=== PATIENT | female | born 1945 | race Caucasian/White ===

== ENCOUNTER 2018-11-13 18:32 | Inpatient (IN) | payer MEDICARE, BC ==
[~2018-11-13] VITALS: Ht 165.1 cm; Wt 82.1 kg
--- NOTE | 2018-11-13 20:24 | NUR ---
Admission Note with Justification for Admission to [facility] Patient admitted to [facility] for protective oversight for emergency stabilization of acute psychiatric crisis. Pt admitted from: [facility] ER Mode of arrival: Secure Transport Accompanied By: Family, husbans and daughter Precipitating behaviors that initiated intake and admission: Wandering away from home, insomnia, hallucinations, paranoia Description of failure of out patient attempts at stabilization in previous setting list behavior and medication trials:Seroquel and seen by psychiatrist and the to ER Behaviors and assessment findings upon admission: Alert oriented, slow response, VSS Plan: Admit for protective oversight for adjustment and stabilization of medications, behaviors and mood. Intense treatment regimen including groups, medication adjustments, therapy, consistent regimen for ADL's, self care, and sleep hygiene. Daily monitoring by Inpatient staff, Psychiatry, and Medical Physician.
[2018-11-13 20:42] VITALS: BP 168/84
[2018-11-13] MEDS ORDERED: MAGNESIUM HYDROXIDE 2,400 MG/30 ML ORAL.SUSP. PO PRN (20:45)
[2018-11-13] MEDS ORDERED: METHYL SALICYLATE/MENTHOL TOPICAL OINTMENT 29GM TUBE. TP PRN (20:45)
[2018-11-13] MEDS ORDERED: MAG HYDROX/AL HYDROX/SIMETH 30 ML ORAL.SUSP PO PRN (20:45)
[2018-11-13] MEDS ORDERED: NICO2GUM5 BC (21:07)
[2018-11-13] MEDS ORDERED: DIPH25CA PO (21:07)
[2018-11-13] MEDS ORDERED: ZOLP5TAB PO (21:07)
[2018-11-13] MEDS ORDERED: QUET200T4 PO (21:07)
[2018-11-13] MEDS ORDERED: CEFP200T PO (21:07)
[2018-11-13] MEDS ORDERED: MULT-658 PO (21:07)
[2018-11-13] MEDS ORDERED: QUET100T4 PO (21:07)
[2018-11-13] MEDS ORDERED: ZOLPIDEM 5 MG TABLET. PO PRN (21:15)
[2018-11-13] MEDS ORDERED: NICOTINE POLACRILEX GUM 2 MG GUM. BC PRN (22:00)
[2018-11-13] MEDS: QUEtiapine 100 MG TABLET. PO SCH (22:17)
--- NOTE | 2018-11-13 22:30 | NUR ---
Pt resting in bed po med taken with some prompting. Pt tries to answer questions but has some difficulty finding the right words. She did say she hears voices and mentioned screaming but did not elaborate. Pt is ambulatory unaided, toilets self. and has shown no aggression or exit seeking tendencies. Approx 1 hr after seroquel given pt fell to sleep and appears to be resting well.
[2018-11-14 06:08] VITALS: BP 124/79
[2018-11-14 07:34] LABS: BASO % 1 % (0-3); EOS # 0.1 x10^3/uL (0.0-0.7); EOS % 2 % (0-3); HEMATOCRIT 47.3 % (36.0-47.0); LYMPH # 1.1 x10^3/uL (1.0-4.8); LYMPH % 22 % (24-48); MEAN CORPUSCULAR HEMOGLOBIN 31 pg (25-35); MEAN CORPUSCULAR HGB CONC 34 g/dL (31-37); MEAN CORPUSCULAR VOLUME 92 fL (79-100); MONO # 0.6 x10^3/uL (0.0-1.1); MONO % 11 % (0-9); NEUT # 3.3 x10^3uL (1.8-7.7); NEUT % 64 % (31-73); PLATELET COUNT 252 x10^3/uL (140-400); RED BLOOD COUNT 5.16 x10^6/uL (3.50-5.40); RED CELL DISTRIBUTION WIDTH 13.1 % (11.5-14.5); WHITE BLOOD COUNT 5.1 x10^3/uL (4.0-11.0)
[2018-11-14 07:35] LABS: ALBUMIN 3.4 g/dL (3.4-5.0); ALBUMIN/GLOBULIN RATIO 1.1 (1.0-1.7); CALCIUM 11.1 mg/dL (8.5-10.1); CREATININE 0.8 mg/dL (0.6-1.0); GFR 70.7; MAGNESIUM 2.1 mg/dL (1.8-2.4); POTASSIUM 3.8 mmol/L (3.5-5.1); TOTAL BILIRUBIN 0.5 mg/dL (0.2-1.0); TOTAL PROTEIN 6.6 g/dL (6.4-8.2)
[2018-11-14] MEDS: MULTIVITAMIN with MINERAL TABLET. PO SCH (07:51)
[2018-11-14] MEDS: QUEtiapine 100 MG TABLET. PO SCH ×2 (07:51→20:02)
[2018-11-14] MEDS: CEFDINIR 300 MG CAPSULE PO SCH ×2 (07:51→20:02)
[2018-11-14 13:50] LABS: THYROID STIM HORMONE (TSH) 2.235 uIU/mL (0.358-3.740)
[2018-11-14 16:04] VITALS: BP 148/82
--- NOTE | 2018-11-14 18:29 | NUR ---
Pt calm, compliant with meds and assessments. Pt oriented to self and situation. Gets confused on time and place. No behaviors noted. Pt interactive and pleasant.
[2018-11-14 19:11] LABS: THYROXINE 5.7 ug/dL (4.5-12.0)
--- NOTE | 2018-11-14 20:20 | NUR ---
Pt out on patio, was seen pulling weeds from flower beds. When talking to nurse it is apparent that pts mental status is greatly improved since yesterday. Speech is fluent and pt asking appropriate questions about why she is here and what she needs to do to be discharged. Explained to pt behaviors and family concerns that led to admission. Told her that med compliance and cooperation would speed her discharge. Pt said she had been reducing her med doses for some time which led her to having problems. She denies hearing voices at this time and seems at ease.
--- NOTE | 2018-11-15 00:34 | CONS ---
DATE OF CONSULTATION: 11/14/2018 REASON FOR CONSULTATION: Medical management. HISTORY OF PRESENT ILLNESS: The patient is a 73-year-old female patient who was admitted on account of wandering away from home and neighbors have brought her back, thinks strangers are in her home. She has auditory hallucination, stands in one place for hours, also increasing insomnia and confusion, all this is in a background of schizophrenia. She apparently has decided to stop taking her medication on her own and her symptoms have worsened again. PAST MEDICAL HISTORY: Significant for hyperparathyroidism, hypercalcemia, melanoma and UTI. PAST PSYCHIATRIC HISTORY: Significant for schizophrenia and auditory hallucinations. FAMILY HISTORY: Unremarkable. SOCIAL HISTORY: She lives with her . She apparently does not smoke, drink alcohol or use any recreational drugs. ALLERGIES: SHE IS ALLERGIC TO HALOPERIDOL. MEDICATIONS: She is currently on diphenhydramine 25 mg p.o. at bedtime p.r.n., cefpodoxime proxetil 200 mg twice a day, nicotine for Nicorette 2 mg every 2 hours, quetiapine fumarate 100 mg at bedtime, Ambien 5 mg at bedtime, and multivitamin 1 tablet once a day. PHYSICAL EXAMINATION: GENERAL: When I examined her this afternoon, she was sitting comfortably in her chair, in no apparent distress. There is no pallor, jaundice or cyanosis. No lymphadenopathy, no thyromegaly. No jugular venous distension. No limb edema. VITAL SIGNS: Her heart rate was 78, blood pressure was 124/79, temperature was 98, respiratory rate was 18 and oxygen saturation was 96%. HEAD, EYES, EARS, NOSE AND THROAT: Normocephalic, atraumatic. NECK: Supple. HEART: Showed normal first and second sounds. No gallop, rub or murmur. CHEST: Clear to auscultation. No crepitation or rhonchi. ABDOMEN: Distended, soft, nontender. NEUROLOGIC: She is confused, but without any obvious lateralizing sign. All her cranial nerves intact. EXTREMITIES: She moves extremities without difficulty. She ambulates without assistance or assistive devices. LABORATORY DATA: Showed a white cell count of 5100, hemoglobin 16, hematocrit 47, MCV 92, and platelet count 252,000 with normal manual differential. Her chemistry showed a serum sodium 144, potassium 3.8, chloride 107, bicarbonate 31, anion gap of 6, BUN 13, creatinine 0.8, estimated GFR was 70 mL per minute. Her glucose was 87, calcium was high at 11.2, magnesium was 2.1. Total bilirubin, AST, ALT, alkaline phosphatase were normal. Total protein was 6.6, albumin 3.4. Her serum iron, TIBC and iron saturation are all low consistent with anemia of chronic disease. Her serum triglycerides 126, total cholesterol 178, LDL was 113, VLDL was 25, HDL was 40, ratio was 4 and TSH was 2.235. IMPRESSION: In summary, this is a 73-year-old female patient with a past medical history of schizophrenia, who apparently was evaluated in the Emergency Room of [facility]. As she was wandering away from home, neighbors have brought her back. She thinks strangers are in her home. She has auditory hallucinations. She stands in one place for hours. Her confusion has increased as well as insomnia. She is here for inpatient psychiatric stabilization. Medically, the only outstanding abnormality is she has hypercalcemia with a serum calcium of 11.1 that was if corrected with low serum albumin is probably going to be around 12 or more. PLAN: I will check her intact PTH as well as her serum phosphorus as this might represent a primary hyperparathyroidism. RICCARDO KHAN MD DR: ODILON/nathaniel JOB#: [id number] / [id number]
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
[2018-11-15 05:08] LABS: BACTERIA,URINE FEW /HPF (0-FEW); BILIRUBIN,URINE NEG (NEG); CLARITY,URINE HAZY; COLOR,URINE YELLOW; GLUCOSE,URINE NEG (NEG); HYALINE CASTS, URINE OCC /HPF; NITRITE,URINE NEG (NEG); SQUAMOUS EPITHELIAL CELL,UR OCC /LPF; UROBILINOGEN,URINE 1 mg/dL (0.2 mg/dL)
[2018-11-15 06:18] VITALS: BP 136/87
[2018-11-15] MEDS: MULTIVITAMIN with MINERAL TABLET. PO SCH (08:22)
[2018-11-15] MEDS: CEFDINIR 300 MG CAPSULE PO SCH ×2 (08:22→20:01)
[2018-11-15] MEDS: QUEtiapine 100 MG TABLET. PO SCH ×2 (08:22→20:02)
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
[2018-11-15 11:08] LABS: HEMOGLOBIN A1C 5.5 % (4.8-5.6)
--- NOTE | 2018-11-15 11:33 | NUR ---
Nursing Note: Patient has been wandering the halls most of morning. Patient has been to the nurses' station multiple times to ask various questions. Patient has been fixating on different things throughout the morning, such as repeatedly asking about her glasses while staff attempted to search for them or asking which door her family member will be coming through after staff had told her which door and what time visiting hours begin. Pt has been pleasant and cooperative with medications and assessments. Continue to monitor.
[2018-11-15 15:53] VITALS: BP 117/80
--- NOTE | 2018-11-15 15:53 | NUR ---
1:1 with Safia this afternoon to socialize. Safia was on the patio and was readily willing to talk with this SW. She appeared to recall this SW from visit yesterday. Safia appeared to be more focused and able to stay on topic this afternoon. She initiated conversation and asked questions of this worker. Safia shared more about her family and life. She has been involved in both SW group activities this date. Safia's spouse visited over the noon hour and she reported this went well. Will follow.
[2018-11-15 19:07] LABS: CALCIUM PTH 10.5 mg/dL (8.7-10.3); CREATININE PTH 0.81 mg/dL (0.57-1.00); PTH INTACT 95 pg/mL (15-65)
[2018-11-15] MEDS: LACTOBACILLUS RHAMNOSUS GG 1 CAPSULE. PO SCH (20:04)
--- NOTE | 2018-11-15 21:13 | PN ---
DATE: 11/15/2018 SUBJECTIVE: The patient was seen today, met with the staff, chart reviewed. The patient's behavior has improved slightly today. The patient was able to hold a conversation, still having mood swings, emotional lability and racing thoughts. OBSERVATION: VITAL SIGNS: Temperature 98.0, blood pressure 124/79, pulse 78, respirations 18, O2 sat 96%. Slept about 4-1/2 hours last night. LABORATORY DATA: The patient's lab reviewed. Her hemoglobin was 16 or recent no change in values from the previous readings. MEDICATIONS: The patient's current medications include Seroquel 100 mg daily and 200 mg at night. The patient so far has not presented any major behavior problems. ASSESSMENT: 1. Bipolar disorder, mixed, with psychotic features. 2. History of schizophrenia. 3. Cognitive disorder, mild, with mood disorder. 4. Psychosis, unspecified and some correlation to her hypercalcemia. PLAN: To continue with the treatment. LENGTH OF STAY: 7 days. BEBETO CUMMINGS MD DR: TIARA/nathaniel JOB#: [id number] / [id number]
--- NOTE | 2018-11-16 00:35 | NUR ---
Nursing Note Pt confused and cooperative, compliant with meds no steven Addendum: 11/16/18 at 0035 by SOFÍA DAMON RN behaviors this pm. Pleasant and smiling on approach.
[2018-11-16 06:01] VITALS: BP 119/74
--- NOTE | 2018-11-16 07:00 | EKG ---
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
[2018-11-16] MEDS: QUEtiapine 100 MG TABLET. PO SCH ×2 (08:40→20:19)
[2018-11-16] MEDS: LACTOBACILLUS RHAMNOSUS GG 1 CAPSULE. PO SCH ×2 (08:40→20:18)
[2018-11-16] MEDS: CEFDINIR 300 MG CAPSULE PO SCH ×2 (08:40→20:18)
[2018-11-16] MEDS: MULTIVITAMIN with MINERAL TABLET. PO SCH (08:40)
--- NOTE | 2018-11-16 10:00 | NUR ---
Activity Therapy Assessment: Pt was standing up during the assessment. Pt appeared to be agitated and wanted to leave the hospital. Pt was able to verbally express herself and did not use any devices to ambulate. Pt remembered her name however refused to give any information about her family. Pt wore glasses, had clean clothes, and hair is medium length. Initial treatment Goal: Pt expressed her interest in biking, hiking, and socializing with family and friends. In addition, pt expressed that she likes to read various books. Initial Treatment Goals: Aimed to increase recreation education and stress management by participating in at least three activity therapy groups. Addendum: 11/18/18 at 1316 by CHARLES BAE ACT Goal based on participation per week. Addendum: 11/28/18 at 1257 by ANTONIO SALDANA ACT Goal Changed 11/28/18: Pt. will participate in all groups she's invited to
--- NOTE | 2018-11-16 12:13 | NUR ---
Pt is calm, cooperative, compliant but confused. No agitation, no aggression, no hallucinations or delusions. She is compliant with her medications and assessment.
[2018-11-16 15:50] VITALS: BP 144/78
[2018-11-16] MEDS: CHOLECALCIFEROL (VITAMIN D3) 50,000 UNIT CAPSULE PO SCH (17:16)
--- NOTE | 2018-11-16 18:17 | NUR ---
Pt is wandering, and is fearful she does not have a room. She continues to ask staff the same questions over and over again such as "do I have a bed here?" "How will I pay for things here?" Pt was not able to understand redirection from nurse. Pt has carried around a papersack full of random items today. Dr. Lubin paged new order for zyprexa zydis 2.5mg q 2 hours PRN max dose 7.5mg in 24 hours.
--- NOTE | 2018-11-16 21:57 | NUR ---
Pt. this evening was in her bedroom, dressed in a hospital gown, when this investigative writer took her HS medications to her. She was calm and compliant this evening. Pt. required minimal prompting with taking her medications. She has been compliant with taking her HS medications this evening.
[2018-11-16] MEDS: diphenhydrAMINE HCL 25 MG CAPSULE PO PRN (23:57)
[2018-11-17 06:15] VITALS: BP 137/86
[2018-11-17] MEDS: CEFDINIR 300 MG CAPSULE PO SCH ×2 (08:43→20:28)
[2018-11-17] MEDS: LACTOBACILLUS RHAMNOSUS GG 1 CAPSULE. PO SCH ×2 (08:43→20:28)
[2018-11-17] MEDS: MULTIVITAMIN with MINERAL TABLET. PO SCH (08:43)
[2018-11-17] MEDS: QUEtiapine 100 MG TABLET. PO SCH ×2 (08:43→20:27)
--- NOTE | 2018-11-17 11:34 | NUR ---
She is compliant with her medications and assessment. Pt is calm, cooperative, compliant but confused. No agitation, no aggression, no hallucinations or delusions.
[2018-11-17 16:16] VITALS: BP 132/82
--- NOTE | 2018-11-17 20:20 | NUR ---
Safia is sitting in day room visiting with another resident and watching "Beauty [employer] Beast" Pt fairly well oriented but not sure what city she is in. Reoriented then pt asking what she needs to do in order to be discharged. Explained to pt the doctor has the final say on discharge matters and she needs to talk with him about those plans. Pt took meds whole without difficulty and has had no behaviors and seems quite at ease among the other pts on the unit.
[2018-11-18 06:15] VITALS: BP 162/84
[2018-11-18] MEDS: QUEtiapine 100 MG TABLET. PO SCH ×2 (08:26→20:12)
[2018-11-18] MEDS: CEFDINIR 300 MG CAPSULE PO SCH ×2 (08:26→20:13)
[2018-11-18] MEDS: MULTIVITAMIN with MINERAL TABLET. PO SCH (08:26)
[2018-11-18] MEDS: LACTOBACILLUS RHAMNOSUS GG 1 CAPSULE. PO SCH ×2 (08:26→20:13)
[2018-11-18 16:46] VITALS: BP 164/86
--- NOTE | 2018-11-18 22:00 | NUR ---
This evening pt is standing in [place]oyd near nursing station she has a blank expression on her face and is mainly non verbal. She was somewhat reluctant to take her meds saying she wanted us to see how she really is, without meds. Discussed meds and purpose with pt and she did finally take them with some prompting. At HS she was a bit resistive to go to bed but she has been sleeping since.
--- NOTE | 2018-11-18 23:41 | PDOC ---
Exam Note: Hermann Note: Please also refer to the separate dictated note~for this date of service dictated separately. Discussed the patient with Nursing staff reviewed the chart.~Reviewed interim history and current functioning. Reviewed vital signs,~Labs/ Radiology~and current medications noted below. Continue current treatment with the changes noted in the dictated addendum note Assessment: Vital Signs: Vital Signs Date Time Temp Pulse Resp B/P (MAP) Pulse Ox O2 Delivery O2 Flow Rate FiO2 11/18/18 16:46 97.1 72 16 164/86 (112) 95 11/17/18 06:15 Room Air I&O Intake and Output 11/18/18 06:59 Intake Total 1440 ml Balance 1440 ml Intake Oral 1440 ml Current Medications: Meds: Current Medications Acetaminophen (Tylenol) 650 mg PRN Q6HRS PRN PO PAIN / TEMP; Start 11/13/18 at 20:45 Multi-Ingredient Ointment (Analgesic [place]) 1 viktoriya PRN QID PRN TP MUSCLE PAIN; Start 11/13/18 at 20:45 Al Hydroxide/Mg Hydroxide (Mylanta Plus Xs) 15 ml PRN AFTMEALHC PRN PO DYSPEPSIA; Start 11/13/18 at 20:45 Magnesium Hydroxide (Milk Of Magnesia) 2,400 mg PRN QHS PRN PO CONSTIPATION; Start 11/13/18 at 20:45 Zolpidem Tartrate (Ambien) 5 mg PRN QHS PRN PO INSOMNIA; Start 11/13/18 at 21:15; Stop 11/18/18 at 19:22; Status DC Quetiapine Fumarate (SEROquel) 100 mg DAILY PO Last administered on 11/18/18at 08:26; Start 11/14/18 at 09:00 Quetiapine Fumarate (SEROquel) 200 mg QHS PO Last administered on 11/18/18at 20:12; Start 11/13/18 at 22:00 Cefdinir (Omnicef) 300 mg BID PO Last administered on 11/18/18at 20:13; Start 11/14/18 at 09:00 Diphenhydramine HCl (Benadryl) 25 mg PRN QHS PRN PO INSOMNIA Last administered on 11/16/18at 23:57; Start 11/13/18 at 22:00 Multivitamins/ Calcium (Thera-M Plus) 1 tab DAILY PO Last administered on 11/18/18at 08:26; Start 11/14/18 at 09:00 Nicotine Polacrilex (Nicorette Gum) 2 mg PRN Q2HR PRN BC SMOKING CESSATION; Start 11/13/18 at 22:00 Lactobacillus Rhamnosus (Culturelle) 1 cap BID PO Last administered on 11/18/18at 20:13; Start 11/15/18 at 21:00 Vitamin D (Vitamin D3) 50,000 unit WEEKLY PO Last administered on 11/16/18at 17:16; Start 11/16/18 at 15:15 Olanzapine (ZyPREXA ZYDIS) 2.5 mg PRN Q2HR PRN PO ANXIETY / AGITATION Last administered on 11/16/18at 18:31; Start 11/16/18 at 18:15 Active Scripts Active Reported Zzzquil (Diphenhydramine Hcl) 25 Mg Capsule 25 Mg PO PRN QHS PRN Seroquel (Quetiapine Fumarate) 200 Mg Tablet 200 Mg PO QHS Seroquel (Quetiapine Fumarate) 100 Mg Tablet 100 Mg PO DAILY Nicorette (Nicotine Polacrilex) 2 Mg Gum 2 Mg BC PRN Q2HR PRN Centrum Silver Tablet (Multivits-Min/Fa/Lycopene/Lut) 1 Each Tablet 1 Each PO DAILY Cefpodoxime Proxetil 200 Mg Tablet 200 Mg PO BID Ambien (Zolpidem Tartrate) 5 Mg Tablet 5 Mg PO PRN QHS PRN I have reviewed the current psychotropics carefully including drug interactions. Risk benefit ratio favors no change other than as noted in my dictated progress note. Diagnosis: Problems: (1) Bipolar affective, mixed, sev w/ psych (2) History of schizophrenia (3) Mild cognitive disorder (4) Mood disorder (5) Unspecified psychosis (6) Hypercalcemia ASHLEE HILARIO MD November 18, 2018 23:41
[2018-11-19 06:39] VITALS: BP 143/9
[2018-11-19 08:15] LABS: BASO % 1 % (0-3); EOS # 0.1 x10^3/uL (0.0-0.7); EOS % 1 % (0-3); HEMATOCRIT 45.6 % (36.0-47.0); HEMOGLOBIN 15.4 g/dL (12.0-15.5); LYMPH # 1.1 x10^3/uL (1.0-4.8); LYMPH % 16 % (24-48); MEAN CORPUSCULAR HEMOGLOBIN 31 pg (25-35); MEAN CORPUSCULAR HGB CONC 34 g/dL (31-37); MEAN CORPUSCULAR VOLUME 92 fL (79-100); MONO # 0.6 x10^3/uL (0.0-1.1); MONO % 9 % (0-9); NEUT % 73 % (31-73); PLATELET COUNT 273 x10^3/uL (140-400); RED BLOOD COUNT 4.98 x10^6/uL (3.50-5.40); RED CELL DISTRIBUTION WIDTH 13.1 % (11.5-14.5); WHITE BLOOD COUNT 6.9 x10^3/uL (4.0-11.0)
[2018-11-19 08:26] LABS: ALBUMIN 3.5 g/dL (3.4-5.0); ALBUMIN/GLOBULIN RATIO 1.1 (1.0-1.7); CALCIUM 10.7 mg/dL (8.5-10.1); CREATININE 0.9 mg/dL (0.6-1.0); GFR 61.7; POTASSIUM 4.2 mmol/L (3.5-5.1); TOTAL BILIRUBIN 0.5 mg/dL (0.2-1.0); TOTAL PROTEIN 6.6 g/dL (6.4-8.2)
[2018-11-19] MEDS: MULTIVITAMIN with MINERAL TABLET. PO SCH (08:27)
[2018-11-19] MEDS: LACTOBACILLUS RHAMNOSUS GG 1 CAPSULE. PO SCH ×2 (08:27→20:07)
[2018-11-19] MEDS: CEFDINIR 300 MG CAPSULE PO SCH ×2 (08:27→20:07)
[2018-11-19] MEDS: QUEtiapine 100 MG TABLET. PO SCH ×2 (08:27→20:07)
--- NOTE | 2018-11-19 11:24 | NUR ---
She is compliant with her medications and assessment. Pt is calm, cooperative, compliant but confused. No agitation, no aggression, no hallucinations or delusions. No yelling out. Pts wandering is less today than a few days ago.
[2018-11-19 16:25] VITALS: BP 137/85
--- NOTE | 2018-11-19 20:03 | PDOC ---
Exam Note: Hermann Note: Admission Date: November 13, 2018 at 20:28 * A recertification for continued Inpatient Psychiatric Admission must be done on Day 12, Day 18 and Day 30. Please also refer to the separate dictated note~for this date of service dictated separately.~Patient seen individually. Discussed the patient with Nursing staff reviewed the chart.~Reviewed interim history and current functioning. Reviewed vital signs,~Labs/ Radiology~and current medications noted below. Continue current treatment with the changes noted in the dictated addendum note Assessment: Vital Signs: Vital Signs Date Time Temp Pulse Resp B/P (MAP) Pulse Ox O2 Delivery O2 Flow Rate FiO2 11/19/18 16:25 97.8 57 16 137/85 (102) 95 11/17/18 06:15 Room Air I&O Intake and Output 11/19/18 07:00 Intake Total 840 ml Balance 840 ml Intake Oral 840 ml Labs: Laboratory Tests Test 11/19/18 07:56 White Blood Count 6.9 x10^3/uL (4.0-11.0) Red Blood Count 4.98 x10^6/uL (3.50-5.40) Hemoglobin 15.4 g/dL (12.0-15.5) Hematocrit 45.6 % (36.0-47.0) Mean Corpuscular Volume 92 fL (79-100) Mean Corpuscular Hemoglobin 31 pg (25-35) Mean Corpuscular Hemoglobin Concent 34 g/dL (31-37) Red Cell Distribution Width 13.1 % (11.5-14.5) Platelet Count 273 x10^3/uL (140-400) Neutrophils (%) (Auto) 73 % (31-73) Lymphocytes (%) (Auto) 16 % (24-48) L Monocytes (%) (Auto) 9 % (0-9) Eosinophils (%) (Auto) 1 % (0-3) Basophils (%) (Auto) 1 % (0-3) Neutrophils # (Auto) 5.0 x10^3uL (1.8-7.7) Lymphocytes # (Auto) 1.1 x10^3/uL (1.0-4.8) Monocytes # (Auto) 0.6 x10^3/uL (0.0-1.1) Eosinophils # (Auto) 0.1 x10^3/uL (0.0-0.7) Basophils # (Auto) 0.0 x10^3/uL (0.0-0.2) Sodium Level 144 mmol/L (136-145) Potassium Level 4.2 mmol/L (3.5-5.1) Chloride Level 108 mmol/L (98-107) H Carbon Dioxide Level 28 mmol/L (21-32) Anion Gap 8 (6-14) Blood Urea Nitrogen 15 mg/dL (7-20) Creatinine 0.9 mg/dL (0.6-1.0) Estimated GFR (Cockcroft-Gault) 61.7 BUN/Creatinine Ratio 17 (6-20) Glucose Level 100 mg/dL (70-99) H Calcium Level 10.7 mg/dL (8.5-10.1) H Total Bilirubin 0.5 mg/dL (0.2-1.0) Aspartate Amino Transferase (AST) 17 U/L (15-37) Alanine Aminotransferase (ALT) 30 U/L (14-59) Alkaline Phosphatase 81 U/L (46-116) Total Protein 6.6 g/dL (6.4-8.2) Albumin 3.5 g/dL (3.4-5.0) Albumin/Globulin Ratio 1.1 (1.0-1.7) Current Medications: Meds: Current Medications Acetaminophen (Tylenol) 650 mg PRN Q6HRS PRN PO PAIN / TEMP; Start 11/13/18 at 20:45 Multi-Ingredient Ointment (Analgesic [place]) 1 viktoriya PRN QID PRN TP MUSCLE PAIN; Start 11/13/18 at 20:45 Al Hydroxide/Mg Hydroxide (Mylanta Plus Xs) 15 ml PRN AFTMEALHC PRN PO DYSP EPSIA; Start 11/13/18 at 20:45 Magnesium Hydroxide (Milk Of Magnesia) 2,400 mg PRN QHS PRN PO CONSTIPATION; Start 11/13/18 at 20:45 Zolpidem Tartrate (Ambien) 5 mg PRN QHS PRN PO INSOMNIA; Start 11/13/18 at 21:15; Stop 11/18/18 at 19:22; Status DC Quetiapine Fumarate (SEROquel) 100 mg DAILY PO Last administered on 11/19/18at 08:27; Start 11/14/18 at 09:00 Quetiapine Fumarate (SEROquel) 200 mg QHS PO Last administered on 11/18/18 20:12; Start 11/13/18 at 22:00 Cefdinir (Omnicef) 300 mg BID PO Last administered on 11/19/18 08:27; Start 11/14/18 at 09:00; Stop 11/21/18 at 08:59 Diphenhydramine HCl (Benadryl) 25 mg PRN QHS PRN PO INSOMNIA Last administered on 11/16/18at 23:57; Start 11/13/18 at 22:00 Multivitamins/ Calcium (Thera-M Plus) 1 tab DAILY PO Last administered on 11/19/18 08:27; Start 11/14/18 at 09:00 Nicotine Polacrilex (Nicorette Gum) 2 mg PRN Q2HR PRN BC SMOKING CESSATION; Start 11/13/18 at 22:00 Lactobacillus Rhamnosus (Culturelle) 1 cap BID PO Last administered on 11/19/18 08:27; Start 11/15/18 at 21:00 Vitamin D (Vitamin D3) 50,000 unit WEEKLY PO Last administered on 11/16/18 17:16; Start 11/16/18 at 15:15 Olanzapine (ZyPREXA ZYDIS) 2.5 mg PRN Q2HR PRN PO ANXIETY / AGITATION Last administered on 11/16/18 18:31; Start 11/16/18 at 18:15 Active Scripts Active Reported Zzzquil (Diphenhydramine Hcl) 25 Mg Capsule 25 Mg PO PRN QHS PRN Seroquel (Quetiapine Fumarate) 200 Mg Tablet 200 Mg PO QHS Seroquel (Quetiapine Fumarate) 100 Mg Tablet 100 Mg PO DAILY Nicorette (Nicotine Polacrilex) 2 Mg Gum 2 Mg BC PRN Q2HR PRN Centrum Silver Tablet (Multivits-Min/Fa/Lycopene/Lut) 1 Each Tablet 1 Each PO DAILY Cefpodoxime Proxetil 200 Mg Tablet 200 Mg PO BID Ambien (Zolpidem Tartrate) 5 Mg Tablet 5 Mg PO PRN QHS PRN I have reviewed the current psychotropics carefully including drug interactions. Risk benefit ratio favors no change other than as noted in my dictated progress note. Diagnosis: Problems: (1) Hypercalcemia (2) Mood disorder (3) Unspecified psychosis (4) Bipolar affective, mixed, sev w/ psych (5) Mild cognitive disorder (6) History of schizophrenia (7) Schizoaffective disorder, chronic condition with acute exacerbation (8) Dementia, vascular, with delusions (9) Dementia, vascular, with depression (10) Dementia in Alzheimer's disease with delusions (11) Dementia in Alzheimer's disease with depression ASHLEE HILARIO MD November 19, 2018 20:03
--- NOTE | 2018-11-19 21:29 | PN ---
DATE: 11/18/2018 PSYCHIATRIC PROGRESS NOTE This late entry 11/18/2018 covers elements not covered in my initial note. SUBJECTIVE: I met with the patient in the morning of 11/18/2018. The patient slept 7-3/4 hours previous night. Per nursing report, she remains somewhat paranoid, suspicious, anxious. As I met with her, she was quite suspicious, not wanting me to attempt to shake her hand as I introduced myself. Reviewed information from Dr. Hernandez, who covered for me over the past 1 week. She is oriented x 2/3, unaware of the date. We requested past psychiatric records for treatment of her schizophrenia as well. REVIEW OF SYSTEMS: No CV, , pulmonary, eye, ENT system symptoms on review. MENTAL STATUS EXAM: Oriented to herself and situation. Speech coherent, rapid at times, had to be in the [place] for part of the morning. Abstraction fair, computation impaired, language function intact, attention span short. Mood and affect, anxious, labile. LABORATORY DATA: Reviewed. IMPRESSION: Schizophrenia, chronic, undifferentiated with acute exacerbation versus schizoaffective disorder, bipolar type, mixed with psychotic features, in partial remission; anxiety disorder, unspecified; mild cognitive impairment. Rest unchanged. PLAN: Obtain past psychiatric records. Continue Seroquel, and Ambien at current dosage, but she may need change to Risperdal given her ongoing psychosis. We may also consider Depakote as a mood stabilizer. ASHLEE HILARIO MD DR: SELVIN/nathaniel JOB#: [id number] / [id number]
[2018-11-20 06:26] VITALS: BP 149/82
[2018-11-20] MEDS: MULTIVITAMIN with MINERAL TABLET. PO SCH (08:23)
[2018-11-20] MEDS: LACTOBACILLUS RHAMNOSUS GG 1 CAPSULE. PO SCH ×2 (08:23→19:37)
[2018-11-20] MEDS: CEFDINIR 300 MG CAPSULE PO SCH ×2 (08:23→19:37)
[2018-11-20] MEDS: QUEtiapine 100 MG TABLET. PO SCH (08:23)
--- NOTE | 2018-11-20 13:45 | NUR ---
Patient has had several periods of standing calmly at nurses station window and staring at nurse. She has approached multiple staff members and said that she "paid for a private room". Nurse reassured patient that she is in a hospital and told her that we don't have private rooms. She continues to insists that she paid for a private room. Compliant with medications given whole with water. Patient continues on Cefdinir for UTI until 11/21.
[2018-11-20 16:12] VITALS: BP 143/78
--- NOTE | 2018-11-20 19:35 | NUR ---
Patient sitting on the patio visiting with other patient. Patient is annoyed when approached by this nurse, saying she wanted to enjoy this nice peaceful evening. Patient answer some of the assessment question, but complained that no one here was communicating with her about anything. Attempted to ask patient what she had concerns about, but she repeated she just wanted to have a peaceful night. Patient compliant with medication whole, with encouragement.
[2018-11-20] MEDS: risperiDONE 0.5 MG TABLET. PO SCH (19:37)
--- NOTE | 2018-11-20 21:13 | PN ---
DATE: 11/19/2018 PSYCHIATRIC PROGRESS NOTE This late entry 11/19/2018 covers elements not covered in my initial note. SUBJECTIVE: I met with the patient in the evening. The patient slept 5-1/2 hours previous night. She remains confused, extremely paranoid. Did better at night and during the day, wandering and stares at people, stands in one place, almost catatonic at times. REVIEW OF SYSTEMS: No CV, , pulmonary, eye, ENT system symptoms on review. Reliability poor. MENTAL STATUS EXAM: Oriented to herself. Insight, judgment, recent and remote memory, attention, concentration, fund of knowledge poor, consistent with her diagnosis. I have reviewed about 30 pages of records we received from her primary care physician about her prior psychiatric diagnosis of schizophrenia and dementia and past treatments, all of which I have reviewed. LABORATORY DATA: Reviewed. IMPRESSION: Major neurocognitive disorder, Alzheimer, vascular with delusion, depression, behavioral disturbance; schizophrenia, chronic, undifferentiated with acute exacerbation versus schizoaffective disorder, bipolar type, mixed with psychotic features. Rest unchanged. PLAN: No change from initial note. Maintain Seroquel and Ambien at current dosage, but we may consider changing the Seroquel to Risperdal. She is also quite obsessive and we may consider Luvox at some point. ASHLEE HILARIO MD DR: SELVIN/nathaniel JOB#: [id number] / [id number]
--- NOTE | 2018-11-20 22:09 | PDOC ---
Exam Note: Hermann Note: Please also refer to the separate dictated note~for this date of service dictated separately.~Patient seen individually. Discussed the patient with Nursing staff reviewed the chart.~Reviewed interim history and current functioning. Reviewed vital signs,~Labs/ Radiology~and current medications noted below. Continue current treatment with the changes noted in the dictated addendum note Assessment: Vital Signs: Vital Signs Date Time Temp Pulse Resp B/P (MAP) Pulse Ox O2 Delivery O2 Flow Rate FiO2 11/20/18 16:12 97.6 84 18 143/78 (99) 95 11/17/18 06:15 Room Air I&O Intake and Output 11/20/18 07:00 Intake Total 1680 ml Balance 1680 ml Intake Oral 1680 ml Current Medications: Meds: Current Medications Acetaminophen (Tylenol) 650 mg PRN Q6HRS PRN PO PAIN / TEMP; Start 11/13/18 at 20:45 Multi-Ingredient Ointment (Analgesic [place]) 1 viktoriya PRN QID PRN TP MUSCLE PAIN; Start 11/13/18 at 20:45 Al Hydroxide/Mg Hydroxide (Mylanta Plus Xs) 15 ml PRN AFTMEALHC PRN PO DYSPEPSIA; Start 11/13/18 at 20:45 Magnesium Hydroxide (Milk Of Magnesia) 2,400 mg PRN QHS PRN PO CONSTIPATION; Start 11/13/18 at 20:45 Zolpidem Tartrate (Ambien) 5 mg PRN QHS PRN PO INSOMNIA; Start 11/13/18 at 21:15; Stop 11/18/18 at 19:22; Status DC Quetiapine Fumarate (SEROquel) 100 mg DAILY PO Last administered on 11/20/18at 08:23; Start 11/14/18 at 09:00; Stop 11/20/18 at 17:01; Status DC Quetiapine Fumarate (SEROquel) 200 mg QHS PO Last administered on 11/19/18at 20:07; Start 11/13/18 at 22:00; Stop 11/20/18 at 17:01; Status DC Cefdinir (Omnicef) 300 mg BID PO Last administered on 11/20/18at 19:37; Start 11/14/18 at 09:00; Stop 11/21/18 at 08:59 Diphenhydramine HCl (Benadryl) 25 mg PRN QHS PRN PO INSOMNIA Last administered on 11/16/18at 23:57; Start 11/13/18 at 22:00 Multivitamins/ Calcium (Thera-M Plus) 1 tab DAILY PO Last administered on 11/20/18at 08:23; Start 11/14/18 at 09:00 Nicotine Polacrilex (Nicorette Gum) 2 mg PRN Q2HR PRN BC SMOKING CESSATION; Start 11/13/18 at 22:00 Lactobacillus Rhamnosus (Culturelle) 1 cap BID PO Last administered on 11/20/18at 19:37; Start 11/15/18 at 21:00 Vitamin D (Vitamin D3) 50,000 unit WEEKLY PO Last administered on 11/16/18 17:16; Start 11/16/18 at 15:15 Olanzapine (ZyPREXA ZYDIS) 2.5 mg PRN Q2HR PRN PO ANXIETY / AGITATION Last administered on 11/16/18at 18:31; Start 11/16/18 at 18:15 Fluvoxamine Maleate (Luvox) 25 mg HS PO Last administered on 11/20/18at 19:37; Start 11/20/18 at 21:00 Risperidone (RisperDAL) 0.25 mg DAILY PO ; Start 11/21/18 at 09:00 Risperidone (RisperDAL) 0.5 mg QHS PO Last administered on 11/20/18at 19:37; Start 11/20/18 at 21:00 Active Scripts Active Reported Zzzquil (Diphenhydramine Hcl) 25 Mg Capsule 25 Mg PO PRN QHS PRN Seroquel (Quetiapine Fumarate) 200 Mg Tablet 200 Mg PO QHS Seroquel (Quetiapine Fumarate) 100 Mg Tablet 100 Mg PO DAILY Nicorette (Nicotine Polacrilex) 2 Mg Gum 2 Mg BC PRN Q2HR PRN Centrum Silver Tablet (Multivits-Min/Fa/Lycopene/Lut) 1 Each Tablet 1 Each PO DAILY Cefpodoxime Proxetil 200 Mg Tablet 200 Mg PO BID Ambien (Zolpidem Tartrate) 5 Mg Tablet 5 Mg PO PRN QHS PRN I have reviewed the current psychotropics carefully including drug interactions. Risk benefit ratio favors no change other than as noted in my dictated progress note. Diagnosis: Problems: (1) Hypercalcemia (2) Mood disorder (3) Unspecified psychosis (4) Bipolar affective, mixed, sev w/ psych (5) Mild cognitive disorder (6) History of schizophrenia (7) Schizoaffective disorder, chronic condition with acute exacerbation (8) Dementia, vascular, with delusions (9) Dementia, vascular, with depression (10) Dementia in Alzheimer's disease with delusions (11) Dementia in Alzheimer's disease with depression ASHLEE HILARIO MD November 20, 2018 22:09
[2018-11-21 05:53] VITALS: BP 161/98
[2018-11-21] MEDS: LACTOBACILLUS RHAMNOSUS GG 1 CAPSULE. PO SCH ×2 (08:56→20:28)
[2018-11-21] MEDS: MULTIVITAMIN with MINERAL TABLET. PO SCH (08:56)
[2018-11-21] MEDS: risperiDONE 0.25 MG TABLET. PO SCH (08:57)
--- NOTE | 2018-11-21 09:28 | NUR ---
WEEKLY ACTIVITY THERAPY NOTE Date of Admission: 11/13/2018 Date of AT Assessment: 11/16/2018 Goal aimed: to increase stress management and recreation education Initial Goal: Pt will participate in at least three activity therapy groups per week. Weekly progress towards goal: achieved Group participation level: varied Weekly highlights: full participation Sunday morning and afternoon group, dancing to country music that afternoon Behaviors observed: behaviors change from day to day and reflect that in group participation. Towards the end of the week she was standing/sitting down the [place]oyd, away from group room, talkative with staff as they walked by. She would have a lot to say, talking more than listening to responses, more calm at the week has progressed, pops into group and engaged a little bit Plan: no change to goal Beneficial adaptations: direct prompting, hints/clues, reminders, needs
[2018-11-21] MEDS ORDERED: traZODone 50 MG TABLET. PO PRN (12:30)
--- NOTE | 2018-11-21 14:41 | NUR ---
Patient observed standing at nurses station staring at staff many times this shift. Patient stated she needed to call to come get her because there had been a misunderstanding. She stated she was here to work and had gotten locked in last night. Nurse explained that she is a patient here, she strongly denied this. Patient wanders unit. Becomes annoyed when staff redirects her. Addendum: 11/21/18 at 1444 by [place] MARIN RN compliant with medications and assessment.
[2018-11-21 15:41] VITALS: BP 136/83
[2018-11-21] MEDS: risperiDONE 0.5 MG TABLET. PO SCH (20:28)
[2018-11-21] MEDS: traZODone 50 MG TABLET. PO SCH (20:29)
--- NOTE | 2018-11-21 22:35 | PDOC ---
Exam Note: Hermann Note: Please also refer to the separate dictated note~for this date of service dictated separately.~Patient seen individually. Discussed the patient with Nursing staff reviewed the chart.~Reviewed interim history and current functioning. Reviewed vital signs,~Labs/ Radiology~and current medications noted below. Continue current treatment with the changes noted in the dictated addendum note Assessment: Vital Signs: Vital Signs Date Time Temp Pulse Resp B/P (MAP) Pulse Ox O2 Delivery O2 Flow Rate FiO2 11/21/18 15:41 98.9 67 16 136/83 (100) 97 11/17/18 06:15 Room Air I&O Intake and Output 11/21/18 06:59 Intake Total 1160 ml Balance 1160 ml Intake Oral 1160 ml # Voids 1 Current Medications: Meds: Current Medications Acetaminophen (Tylenol) 650 mg PRN Q6HRS PRN PO PAIN / TEMP; Start 11/13/18 at 20:45 Multi-Ingredient Ointment (Analgesic [place]) 1 viktoriya PRN QID PRN TP MUSCLE PAIN; Start 11/13/18 at 20:45 Al Hydroxide/Mg Hydroxide (Mylanta Plus Xs) 15 ml PRN AFTMEALHC PRN PO DYSPEPSIA; Start 11/13/18 at 20:45 Magnesium Hydroxide (Milk Of Magnesia) 2,400 mg PRN QHS PRN PO CONSTIPATION; Start 11/13/18 at 20:45 Zolpidem Tartrate (Ambien) 5 mg PRN QHS PRN PO INSOMNIA; Start 11/13/18 at 21:15; Stop 11/18/18 at 19:22; Status DC Quetiapine Fumarate (SEROquel) 100 mg DAILY PO Last administered on 11/20/18at 08:23; Start 11/14/18 at 09:00; Stop 11/20/18 at 17:01; Status DC Quetiapine Fumarate (SEROquel) 200 mg QHS PO Last administered on 11/19/18at 20:07; Start 11/13/18 at 22:00; Stop 11/20/18 at 17:01; Status DC Cefdinir (Omnicef) 300 mg BID PO Last administered on 11/20/18at 19:37; Start 11/14/18 at 09:00; Stop 11/21/18 at 08:59; Status DC Diphenhydramine HCl (Benadryl) 25 mg PRN QHS PRN PO INSOMNIA Last administered on 11/16/18 23:57; Start 11/13/18 at 22:00 Multivitamins/ Calcium (Thera-M Plus) 1 tab DAILY PO Last administered on 11/21/18 08:56; Start 11/14/18 at 09:00 Nicotine Polacrilex (Nicorette Gum) 2 mg PRN Q2HR PRN BC SMOKING CESSATION; Start 11/13/18 at 22:00 Lactobacillus Rhamnosus (Culturelle) 1 cap BID PO Last administered on 11/21/18 20:28; Start 11/15/18 at 21:00 Vitamin D (Vitamin D3) 50,000 unit WEEKLY PO Last administered on 11/16/18 1 7:16; Start 11/16/18 at 15:15 Olanzapine (ZyPREXA ZYDIS) 2.5 mg PRN Q2HR PRN PO ANXIETY / AGITATION Last administered on 11/16/18 18:31; Start 11/16/18 at 18:15 Fluvoxamine Maleate (Luvox) 25 mg HS PO Last administered on 11/21/18 20:28; Start 11/20/18 at 21:00 Risperidone (RisperDAL) 0.25 mg DAILY PO Last administered on 11/21/18 08:57; Start 11/21/18 at 09:00 Risperidone (RisperDAL) 0.5 mg QHS PO Last administered on 11/21/18 20:28; Start 11/20/18 at 21:00 Trazodone HCl (Desyrel) 50 mg QHS PO Last administered on 11/21/18 20:29; Start 11/21/18 at 21:00 Trazodone HCl (Desyrel) 50 mg PRN QHS PRN PO INSOMNIA; Start 11/21/18 at 12:30 Active Scripts Active Reported Zzzquil (Diphenhydramine Hcl) 25 Mg Capsule 25 Mg PO PRN QHS PRN Seroquel (Quetiapine Fumarate) 200 Mg Tablet 200 Mg PO QHS Seroquel (Quetiapine Fumarate) 100 Mg Tablet 100 Mg PO DAILY Nicorette (Nicotine Polacrilex) 2 Mg Gum 2 Mg BC PRN Q2HR PRN Centrum Silver Tablet (Multivits-Min/Fa/Lycopene/Lut) 1 Each Tablet 1 Each PO DAILY Cefpodoxime Proxetil 200 Mg Tablet 200 Mg PO BID Ambien (Zolpidem Tartrate) 5 Mg Tablet 5 Mg PO PRN QHS PRN I have reviewed the current psychotropics carefully including drug interactions. Risk benefit ratio favors no change other than as noted in my dictated progress note. Diagnosis: Problems: (1) Mood disorder (2) Unspecified psychosis (3) Bipolar affective, mixed, sev w/ psych (4) Mild cognitive disorder (5) History of schizophrenia (6) Schizoaffective disorder, chronic condition with acute exacerbation (7) Dementia, vascular, with delusions (8) Dementia, vascular, with depression (9) Dementia in Alzheimer's disease with delusions (10) Dementia in Alzheimer's disease with depression ASHLEE HILARIO MD November 21, 2018 22:35
--- NOTE | 2018-11-22 01:20 | NUR ---
Nursing Note Assumed care of patient @1845. Patient sitting in day room withdrawn to self. Interactive when approached by staff. Patient compliant with assessment and medications whole with encouragement.
[2018-11-22 06:04] VITALS: BP 147/82
[2018-11-22] MEDS: risperiDONE 0.25 MG TABLET. PO SCH (08:43)
[2018-11-22] MEDS: MULTIVITAMIN with MINERAL TABLET. PO SCH (08:43)
[2018-11-22] MEDS: LACTOBACILLUS RHAMNOSUS GG 1 CAPSULE. PO SCH ×2 (08:43→19:32)
--- NOTE | 2018-11-22 13:32 | NUR ---
Patients visiting with peers in hallway. Compliant with medications and cooperative with assessments. She performs her own ADLs. Patient asked questions to staff about her belongings in the closet and her toothbrush/toothpaste. Patients came by at lunch and they were looking at a [place] brochure, he stated they are going there in June. She was observed to be answering questions appropriately.
[2018-11-22 16:04] VITALS: BP 128/71
--- NOTE | 2018-11-22 17:01 | NUR ---
Luvox dose will increase to 50mg at HS on 11/23.
[2018-11-22] MEDS: risperiDONE 0.5 MG TABLET. PO SCH (19:32)
[2018-11-22] MEDS: traZODone 50 MG TABLET. PO SCH (19:33)
--- NOTE | 2018-11-22 19:40 | PN ---
DATE: 11/20/2018 PSYCHIATRIC PROGRESS NOTE This late entry 11/20/2018 covers elements not covered in my initial note. SUBJECTIVE: I met with the patient in the evening of 11/20/2018. The patient slept 4-1/2 hours previous night. At times, she appears quite psychotic, almost catatonic, standing at the glass partition of the nursing station, staring and oblivious to anything around her. She does have a UTI that is being treated and may well be contributing to some of her worsening psychosis. She is also obsessive, quite paranoid. REVIEW OF SYSTEMS: No CV, , pulmonary, eye, ENT system symptoms on review. MENTAL STATUS EXAM: Oriented to herself and situation. Speech has some latency, coherent. Abstraction fair, computation impaired, language function intact, attention span short. Mood and affect somewhat withdrawn, anxious, at times labile. No suicidal or homicidal ideation. LABORATORY DATA: Reviewed. IMPRESSION: Schizoaffective disorder, bipolar type. Psychotic disorder, unspecified. Obsessive-compulsive disorder; anxiety disorder, unspecified. PLAN: Treat the UTI. Start Luvox 25 mg p.o. at bedtime for the obsessive-compulsive symptoms and ruminations. Change Seroquel 100 mg daily, 200 mg at bedtime to Risperdal 0.5 mg at bedtime x 1 and then 0.25 mg a.m. and 0.5 mg at bedtime for her ongoing psychotic symptoms. We will adjust further as clinically indicated and consider Depakote as a mood stabilizer depending on the progress with the initial changes. ASHLEE HILARIO MD DR: SELVIN/nathaniel JOB#: [id number] / [id number]
--- NOTE | 2018-11-22 21:03 | PN ---
DATE: 11/21/2018 PSYCHIATRIC PROGRESS NOTE This late entry 11/21/2018 covers elements not covered in my initial note. SUBJECTIVE: I met with the patient in the evening of 11/21/2018 and staffed at a treatment team meeting with the entire team in the morning and the patient's had attended the treatment team meeting, which was lengthy and reviewed the patient's history. had not noticed any significant memory deficits, but rather the psychosis, much of which was worsened in the recent past. Additionally, she does have a UTI, which could have worsened the entire presentation. stated Dr. Mcneill was a psychiatrist and diagnosed her with schizophrenia and she has been seeing Dr. Ruth for about 3 years. She had been on Risperdal while at [facility] in 2012, but apparently it was not effective at that time and she is allergic to HALDOL. She slept 2-3/4 hours previous evening, compliant with medications, extremely obsessive about wanting the telephone and in groups on Sunday, she was dancing. Sleeping poorly. REVIEW OF SYSTEMS: No CV, , pulmonary, eye, ENT system symptoms on review. MENTAL STATUS EXAM: Oriented to herself. Insight limited, judgment marginal, language function intact, attention span short. She remains quite paranoid, psychotic. LABORATORY DATA: Reviewed. IMPRESSION: Schizoaffective disorder, bipolar type, mixed with psychotic features; cognitive disorder, unspecified. Rest as above; anxiety disorder, unspecified. PLAN: Start trazodone 50 mg at bedtime, october repeat x 1 for insomnia, treat the UTI and she is on Risperdal, total 0.75 mg daily; Luvox 25 mg at bedtime. Make further adjustments as clinically indicated. Consider Depakote as needed as a mood stabilizer. MAN Puma HILARIO MD DR: SELVIN/nathaniel JOB#: [id number] / [id number]
--- NOTE | 2018-11-22 22:27 | NUR ---
Pt being social with another pt. Pt pleasant, smiling, and cooperative. No behaviors noted.
--- NOTE | 2018-11-22 22:41 | PDOC ---
Exam Note: Hermann Note: Please also refer to the separate dictated note~for this date of service dictated separately.~Patient seen individually. Discussed the patient with Nursing staff reviewed the chart.~Reviewed interim history and current functioning. Reviewed vital signs,~Labs/ Radiology~and current medications noted below. Continue current treatment with the changes noted in the dictated addendum note Assessment: Vital Signs: Vital Signs Date Time Temp Pulse Resp B/P (MAP) Pulse Ox O2 Delivery O2 Flow Rate FiO2 11/22/18 16:04 98.1 78 20 128/71 (90) 98 11/17/18 06:15 Room Air I&O Intake and Output 11/22/18 06:59 Intake Total 720 ml Balance 720 ml Intake Oral 720 ml # Voids 1 Current Medications: Meds: Current Medications Acetaminophen (Tylenol) 650 mg PRN Q6HRS PRN PO PAIN / TEMP; Start 11/13/18 at 20:45 Multi-Ingredient Ointment (Analgesic [place]) 1 viktoriya PRN QID PRN TP MUSCLE PAIN; Start 11/13/18 at 20:45 Al Hydroxide/Mg Hydroxide (Mylanta Plus Xs) 15 ml PRN AFTMEALHC PRN PO DYSPEPSIA; Start 11/13/18 at 20:45 Magnesium Hydroxide (Milk Of Magnesia) 2,400 mg PRN QHS PRN PO CONSTIPATION; Start 11/13/18 at 20:45 Zolpidem Tartrate (Ambien) 5 mg PRN QHS PRN PO INSOMNIA; Start 11/13/18 at 21:15; Stop 11/18/18 at 19:22; Status DC Quetiapine Fumarate (SEROquel) 100 mg DAILY PO Last administered on 11/20/18at 08:23; Start 11/14/18 at 09:00; Stop 11/20/18 at 17:01; Status DC Quetiapine Fumarate (SEROquel) 200 mg QHS PO Last administered on 11/19/18at 20:07; Start 11/13/18 at 22:00; Stop 11/20/18 at 17:01; Status DC Cefdinir (Omnicef) 300 mg BID PO Last administered on 11/20/18at 19:37; Start 11/14/18 at 09:00; Stop 11/21/18 at 08:59; Status DC Diphenhydramine HCl (Benadryl) 25 mg PRN QHS PRN PO INSOMNIA Last administered on 11/16/18 23:57; Start 11/13/18 at 22:00 Multivitamins/ Calcium (Thera-M Plus) 1 tab DAILY PO Last administered on 11/22/18 08:43; Start 11/14/18 at 09:00 Nicotine Polacrilex (Nicorette Gum) 2 mg PRN Q2HR PRN BC SMOKING CESSATION; Start 11/13/18 at 22:00 Lactobacillus Rhamnosus (Culturelle) 1 cap BID PO Last administered on 11/22/18 19:32; Start 11/15/18 at 21:00 Vitamin D (Vitamin D3) 50,000 unit WEEKLY PO Last administered on 11/16/18 17:16; Start 11/16/18 at 15:15 Olanzapine (ZyPREXA ZYDIS) 2.5 mg PRN Q2HR PRN PO ANXIETY / AGITATION Last administered on 11/16/18 18:31; Start 11/16/18 at 18:15 Fluvoxamine Maleate (Luvox) 25 mg HS PO Last administered on 11/22/18 19:33; Start 11/20/18 at 21:00; Stop 11/23/18 at 20:59 Risperidone (RisperDAL) 0.25 mg DAILY PO Last administered on 11/22/18 08:43; Start 11/21/18 at 09:00 Risperidone (RisperDAL) 0.5 mg QHS PO Last administered on 11/22/18 19:32; Start 11/20/18 at 21:00 Trazodone HCl (Desyrel) 50 mg QHS PO Last administered on 11/22/18 19:33; Start 11/21/18 at 21:00 Trazodone HCl (Desyrel) 50 mg PRN QHS PRN PO INSOMNIA; Start 11/21/18 at 12:30 Fluvoxamine Maleate (Luvox) 50 mg HS PO ; Start 11/23/18 at 21:00 Active Scripts Active Reported Zzzquil (Diphenhydramine Hcl) 25 Mg Capsule 25 Mg PO PRN QHS PRN Seroquel (Quetiapine Fumarate) 200 Mg Tablet 200 Mg PO QHS Seroquel (Quetiapine Fumarate) 100 Mg Tablet 100 Mg PO DAILY Nicorette (Nicotine Polacrilex) 2 Mg Gum 2 Mg BC PRN Q2HR PRN Centrum Silver Tablet (Multivits-Min/Fa/Lycopene/Lut) 1 Each Tablet 1 Each PO DAILY Cefpodoxime Proxetil 200 Mg Tablet 200 Mg PO BID Ambien (Zolpidem Tartrate) 5 Mg Tablet 5 Mg PO PRN QHS PRN I have reviewed the current psychotropics carefully including drug interactions. Risk benefit ratio favors no change other than as noted in my dictated progress note. Diagnosis: Problems: (1) Dementia in Alzheimer's disease with depression (2) Dementia in Alzheimer's disease with delusions (3) Dementia, vascular, with depression (4) Dementia, vascular, with delusions (5) Schizoaffective disorder, chronic condition with acute exacerbation (6) History of schizophrenia (7) Mild cognitive disorder (8) Bipolar affective, mixed, sev w/ psych (9) Unspecified psychosis (10) Mood disorder ASHLEE HILARIO MD November 22, 2018 22:41
[2018-11-23 06:18] VITALS: BP 152/82
[2018-11-23] MEDS: MULTIVITAMIN with MINERAL TABLET. PO SCH (09:58)
[2018-11-23] MEDS: risperiDONE 0.25 MG TABLET. PO SCH (09:58)
[2018-11-23] MEDS: LACTOBACILLUS RHAMNOSUS GG 1 CAPSULE. PO SCH ×2 (09:58→19:35)
[2018-11-23] MEDS: CHOLECALCIFEROL (VITAMIN D3) 50,000 UNIT CAPSULE PO SCH (10:05)
--- NOTE | 2018-11-23 12:33 | NUR ---
Patient has had a good morning. Took medications, allowed for morning assessment. Patient participated in group and has been visiting with staff and other patients. No signs of agitation noted. Will continue to monitor.
[2018-11-23 15:42] VITALS: BP 156/84
[2018-11-23] MEDS: traZODone 50 MG TABLET. PO SCH (19:35)
[2018-11-23] MEDS: risperiDONE 0.5 MG TABLET. PO SCH (19:37)
--- NOTE | 2018-11-23 22:38 | PDOC ---
Exam Note: Hermann Note: Please also refer to the separate dictated note~for this date of service dictated separately.~Patient seen individually. Discussed the patient with Nursing staff reviewed the chart.~Reviewed interim history and current functioning. Reviewed vital signs,~Labs/ Radiology~and current medications noted below. Continue current treatment with the changes noted in the dictated addendum note Assessment: Vital Signs: Vital Signs Date Time Temp Pulse Resp B/P (MAP) Pulse Ox O2 Delivery O2 Flow Rate FiO2 11/23/18 15:42 97.5 67 16 156/84 (108) 98 11/23/18 06:18 Room Air I&O Intake and Output 11/23/18 06:59 Intake Total 960 ml Balance 960 ml Intake Oral 960 ml Current Medications: Meds: Current Medications Acetaminophen (Tylenol) 650 mg PRN Q6HRS PRN PO PAIN / TEMP; Start 11/13/18 at 20:45 Multi-Ingredient Ointment (Analgesic [place]) 1 viktoriya PRN QID PRN TP MUSCLE PAIN; Start 11/13/18 at 20:45 Al Hydroxide/Mg Hydroxide (Mylanta Plus Xs) 15 ml PRN AFTMEALHC PRN PO DYSPEPSIA; Start 11/13/18 at 20:45 Magnesium Hydroxide (Milk Of Magnesia) 2,400 mg PRN QHS PRN PO CONSTIPATION; Start 11/13/18 at 20:45 Zolpidem Tartrate (Ambien) 5 mg PRN QHS PRN PO INSOMNIA; Start 11/13/18 at 21:15; Stop 11/18/18 at 19:22; Status DC Quetiapine Fumarate (SEROquel) 100 mg DAILY PO Last administered on 11/20/18at 08:23; Start 11/14/18 at 09:00; Stop 11/20/18 at 17:01; Status DC Quetiapine Fumarate (SEROquel) 200 mg QHS PO Last administered on 11/19/18at 20:07; Start 11/13/18 at 22:00; Stop 11/20/18 at 17:01; Status DC Cefdinir (Omnicef) 300 mg BID PO Last administered on 11/20/18at 19:37; Start 11/14/18 at 09:00; Stop 11/21/18 at 08:59; Status DC Diphenhydramine HCl (Benadryl) 25 mg PRN QHS PRN PO INSOMNIA Last administered on 11/16/18 23:57; Start 11/13/18 at 22:00 Multivitamins/ Calcium (Thera-M Plus) 1 tab DAILY PO Last administered on 11/23/18 09:58; Start 11/14/18 at 09:00 Nicotine Polacrilex (Nicorette Gum) 2 mg PRN Q2HR PRN BC SMOKING CESSATION; Start 11/13/18 at 22:00 Lactobacillus Rhamnosus (Culturelle) 1 cap BID PO Last administered on 9at 19:35; Start 11/15/18 at 21:00 Vitamin D (Vitamin D3) 50,000 unit WEEKLY PO Last administered on 11/23/18 10:05; Start 11/16/18 at 15:15 Olanzapine (ZyPREXA ZYDIS) 2.5 mg PRN Q2HR PRN PO ANXIETY / AGITATION Last administered on 11/16/18 18:31; Start 11/16/18 at 18:15 Fluvoxamine Maleate (Luvox) 25 mg HS PO Last administered on 11/22/18 19:33; Start 11/20/18 at 21:00; Stop 11/23/18 at 20:59; Status DC Risperidone (RisperDAL) 0.25 mg DAILY PO Last administered on 11/23/18 09:58; Start 11/21/18 at 09:00 Risperidone (RisperDAL) 0.5 mg QHS PO Last administered on 11/23/18 19:37; Start 11/20/18 at 21:00 Trazodone HCl (Desyrel) 50 mg QHS PO Last administered on 11/23/18 19:35; Start 11/21/18 at 21:00 Trazodone HCl (Desyrel) 50 mg PRN QHS PRN PO INSOMNIA; Start 11/21/18 at 12:30 Fluvoxamine Maleate (Luvox) 50 mg HS PO Last administered on 11/23/18 19:37; Start 11/23/18 at 21:00 Active Scripts Active Reported Zzzquil (Diphenhydramine Hcl) 25 Mg Capsule 25 Mg PO PRN QHS PRN Seroquel (Quetiapine Fumarate) 200 Mg Tablet 200 Mg PO QHS Seroquel (Quetiapine Fumarate) 100 Mg Tablet 100 Mg PO DAILY Nicorette (Nicotine Polacrilex) 2 Mg Gum 2 Mg BC PRN Q2HR PRN Centrum Silver Tablet (Multivits-Min/Fa/Lycopene/Lut) 1 Each Tablet 1 Each PO DAILY Cefpodoxime Proxetil 200 Mg Tablet 200 Mg PO BID Ambien (Zolpidem Tartrate) 5 Mg Tablet 5 Mg PO PRN QHS PRN I have reviewed the current psychotropics carefully including drug interactions. Risk benefit ratio favors no change other than as noted in my dictated progress note. Diagnosis: Problems: (1) Mood disorder (2) Unspecified psychosis (3) Bipolar affective, mixed, sev w/ psych (4) Mild cognitive disorder (5) History of schizophrenia (6) Schizoaffective disorder, chronic condition with acute exacerbation (7) Dementia, vascular, with delusions (8) Dementia, vascular, with depression (9) Dementia in Alzheimer's disease with delusions (10) Dementia in Alzheimer's disease with depression ASHLEE HILARIO MD November 23, 2018 22:38
--- NOTE | 2018-11-24 00:26 | NUR ---
She was in her room this evening, when this engineering writer took her medications to her this evening. She appeared calm and interacting appropriately with staff. She has been complaint with taking her HS medications this evening.
[2018-11-24 07:03] VITALS: BP 115/69
[2018-11-24 08:47] LABS: BASO % 1 % (0-3); EOS # 0.1 x10^3/uL (0.0-0.7); EOS % 2 % (0-3); HEMATOCRIT 44.3 % (36.0-47.0); HEMOGLOBIN 14.9 g/dL (12.0-15.5); LYMPH # 1.3 x10^3/uL (1.0-4.8); LYMPH % 22 % (24-48); MEAN CORPUSCULAR HEMOGLOBIN 31 pg (25-35); MEAN CORPUSCULAR HGB CONC 34 g/dL (31-37); MEAN CORPUSCULAR VOLUME 92 fL (79-100); MONO # 0.4 x10^3/uL (0.0-1.1); MONO % 7 % (0-9); NEUT # 4.2 x10^3uL (1.8-7.7); NEUT % 69 % (31-73); PLATELET COUNT 305 x10^3/uL (140-400); RED BLOOD COUNT 4.83 x10^6/uL (3.50-5.40); RED CELL DISTRIBUTION WIDTH 13.4 % (11.5-14.5); WHITE BLOOD COUNT 6.1 x10^3/uL (4.0-11.0)
[2018-11-24] MEDS: LACTOBACILLUS RHAMNOSUS GG 1 CAPSULE. PO SCH ×2 (08:57→20:50)
[2018-11-24] MEDS: risperiDONE 0.25 MG TABLET. PO SCH (08:58)
[2018-11-24] MEDS: MULTIVITAMIN with MINERAL TABLET. PO SCH (08:58)
[2018-11-24 09:03] LABS: ALBUMIN 3.2 g/dL (3.4-5.0); CALCIUM 10.6 mg/dL (8.5-10.1); CREATININE 0.8 mg/dL (0.6-1.0); GFR 70.7; POTASSIUM 4.4 mmol/L (3.5-5.1); TOTAL BILIRUBIN 0.4 mg/dL (0.2-1.0); TOTAL PROTEIN 6.3 g/dL (6.4-8.2)
[2018-11-24 16:04] VITALS: BP 152/80
--- NOTE | 2018-11-24 18:17 | NUR ---
Patient is cooperative and compliant with treatment plan today. Took all medication without complaint, social with other patients, no new behaviors exhibited. Patient denies any concerns or problems at this time. Will continue to monitor.
[2018-11-24] MEDS: risperiDONE 0.5 MG TABLET. PO SCH (20:50)
[2018-11-24] MEDS: traZODone 50 MG TABLET. PO SCH (20:50)
--- NOTE | 2018-11-24 22:29 | PDOC ---
Exam Note: Hermann Note: Please also refer to the separate dictated note~for this date of service dictated separately.~Patient seen individually. Discussed the patient with Nursing staff reviewed the chart.~Reviewed interim history and current functioning. Reviewed vital signs,~Labs/ Radiology~and current medications noted below. Continue current treatment with the changes noted in the dictated addendum note Assessment: Vital Signs: Vital Signs Date Time Temp Pulse Resp B/P (MAP) Pulse Ox O2 Delivery O2 Flow Rate FiO2 11/24/18 16:04 98.0 60 20 152/80 (104) 99 11/23/18 06:18 Room Air I&O Intake and Output 11/24/18 06:59 Intake Total 1440 ml Balance 1440 ml Intake Oral 1440 ml Labs: Laboratory Tests Test 11/24/18 06:52 White Blood Count 6.1 x10^3/uL (4.0-11.0) Red Blood Count 4.83 x10^6/uL (3.50-5.40) Hemoglobin 14.9 g/dL (12.0-15.5) Hematocrit 44.3 % (36.0-47.0) Mean Corpuscular Volume 92 fL (79-100) Mean Corpuscular Hemoglobin 31 pg (25-35) Mean Corpuscular Hemoglobin Concent 34 g/dL (31-37) Red Cell Distribution Width 13.4 % (11.5-14.5) Platelet Count 305 x10^3/uL (140-400) Neutrophils (%) (Auto) 69 % (31-73) Lymphocytes (%) (Auto) 22 % (24-48) L Monocytes (%) (Auto) 7 % (0-9) Eosinophils (%) (Auto) 2 % (0-3) Basophils (%) (Auto) 1 % (0-3) Neutrophils # (Auto) 4.2 x10^3uL (1.8-7.7) Lymphocytes # (Auto) 1.3 x10^3/uL (1.0-4.8) Monocytes # (Auto) 0.4 x10^3/uL (0.0-1.1) Eosinophils # (Auto) 0.1 x10^3/uL (0.0-0.7) Basophils # (Auto) 0.0 x10^3/uL (0.0-0.2) Sodium Level 142 mmol/L (136-145) Potassium Level 4.4 mmol/L (3.5-5.1) Chloride Level 107 mmol/L (98-107) Carbon Dioxide Level 28 mmol/L (21-32) Anion Gap 7 (6-14) Blood Urea Nitrogen 17 mg/dL (7-20) Creatinine 0.8 mg/dL (0.6-1.0) Estimated GFR (Cockcroft-Gault) 70.7 BUN/Creatinine Ratio 21 (6-20) H Glucose Level 93 mg/dL (70-99) Calcium Level 10.6 mg/dL (8.5-10.1) H Total Bilirubin 0.4 mg/dL (0.2-1.0) Aspartate Amino Transferase (AST) 18 U/L (15-37) Alanine Aminotransferase (ALT) 30 U/L (14-59) Alkaline Phosphatase 73 U/L (46-116) Total Protein 6.3 g/dL (6.4-8.2) L Albumin 3.2 g/dL (3.4-5.0) L Albumin/Globulin Ratio 1.0 (1.0-1.7) Current Medications: Meds: Current Medications Acetaminophen (Tylenol) 650 mg PRN Q6HRS PRN PO PAIN / TEMP; Start 11/13/18 at 20:45 Multi-Ingredient Ointment (Analgesic [place]) 1 viktoriya PRN QID PRN TP MUSCLE PAIN; Start 11/13/18 at 20:45 Al Hydroxide/Mg Hydroxide (Mylanta Plus Xs) 15 ml PRN AFTMEALHC PRN PO DYSPEPSIA; Start 11/13/18 at 20:45 Magnesium Hydroxide (Milk Of Magnesia) 2,400 mg PRN QHS PRN PO CONSTIPATION; Start 11/13/18 at 20:45 Zolpidem Tartrate (Ambien) 5 mg PRN QHS PRN PO INSOMNIA; Start 11/13/18 at 21:15; Stop 11/18/18 at 19:22; Status DC Quetiapine Fumarate (SEROquel) 100 mg DAILY PO Last administered on 11/20/18at 08:23; Start 11/14/18 at 09:00; Stop 11/20/18 at 17:01; Status DC Quetiapine Fumarate (SEROquel) 200 mg QHS PO Last administered on 11/19/18 20:07; Start 11/13/18 at 22:00; Stop 11/20/18 at 17:01; Status DC Cefdinir (Omnicef) 300 mg BID PO Last administered on 11/20/18 19:37; Start 11/14/18 at 09:00; Stop 11/21/18 at 08:59; Status DC Diphenhydramine HCl (Benadryl) 25 mg PRN QHS PRN PO INSOMNIA Last administered on 11/16/18 23:57; Start 11/13/18 at 22:00 Multivitamins/ Calcium (Thera-M Plus) 1 tab DAILY PO Last administered on 11/24/18 08:58; Start 11/14/18 at 09:00 Nicotine Polacrilex (Nicorette Gum) 2 mg PRN Q2HR PRN BC SMOKING CESSATION; Start 11/13/18 at 22:00 Lactobacillus Rhamnosus (Culturelle) 1 cap BID PO Last administered on 11/24/18at 20:50; Start 11/15/18 at 21:00 Vitamin D (Vitamin D3) 50,000 unit WEEKLY PO Last administered on 11/23/18 10:05; Start 11/16/18 at 15:15 Olanzapine (ZyPREXA ZYDIS) 2.5 mg PRN Q2HR PRN PO ANXIETY / AGITATION Last administered on 11/16/18 18:31; Start 11/16/18 at 18:15 Fluvoxamine Maleate (Luvox) 25 mg HS PO Last administered on 11/22/18 19:33; Start 11/20/18 at 21:00; Stop 11/23/18 at 20:59; Status DC Risperidone (RisperDAL) 0.25 mg DAILY PO Last administered on 11/24/18 08:58; Start 11/21/18 at 09:00 Risperidone (RisperDAL) 0.5 mg QHS PO Last administered on 11/24/18 20:50; Start 11/20/18 at 21:00 Trazodone HCl (Desyrel) 50 mg QHS PO Last administered on 11/24/18 20:50; Start 11/21/18 at 21:00 Trazodone HCl (Desyrel) 50 mg PRN QHS PRN PO INSOMNIA; Start 11/21/18 at 12:30 Fluvoxamine Maleate (Luvox) 50 mg HS PO Last administered on 11/24/18at 20:50; Start 11/23/18 at 21:00 Active Scripts Active Reported Zzzquil (Diphenhydramine Hcl) 25 Mg Capsule 25 Mg PO PRN QHS PRN Seroquel (Quetiapine Fumarate) 200 Mg Tablet 200 Mg PO QHS Seroquel (Quetiapine Fumarate) 100 Mg Tablet 100 Mg PO DAILY Nicorette (Nicotine Polacrilex) 2 Mg Gum 2 Mg BC PRN Q2HR PRN Centrum Silver Tablet (Multivits-Min/Fa/Lycopene/Lut) 1 Each Tablet 1 Each PO DAILY Cefpodoxime Proxetil 200 Mg Tablet 200 Mg PO BID Ambien (Zolpidem Tartrate) 5 Mg Tablet 5 Mg PO PRN QHS PRN I have reviewed the current psychotropics carefully including drug interactions. Risk benefit ratio favors no change other than as noted in my dictated progress note. Diagnosis: Problems: (1) Dementia in Alzheimer's disease with depression (2) Dementia in Alzheimer's disease with delusions (3) Dementia, vascular, with depression (4) Dementia, vascular, with delusions (5) Schizoaffective disorder, chronic condition with acute exacerbation (6) History of schizophrenia (7) Mild cognitive disorder (8) Bipolar affective, mixed, sev w/ psych (9) Mood disorder (10) Unspecified psychosis ASHLEE HILARIO MD November 24, 2018 22:29
--- NOTE | 2018-11-24 23:30 | NUR ---
Patient has been social, pleasant and interactive with staff and peers. She was watching a movie on TV in the day room. Compliant with medications taken whole with water, no prompting needed. Nurse and patient had a conversation about her upcoming trip to [place] in June. She stated she is really looking forward to it and that her had visited her today. Patient ambulates well without assistive devices and performs her own ADLs. No adverse behaviors noted this shift. She finished her AB for UTI on 11/21.
[2018-11-25 06:17] VITALS: BP 130/82
[2018-11-25] MEDS: MULTIVITAMIN with MINERAL TABLET. PO SCH (07:53)
[2018-11-25] MEDS: risperiDONE 0.25 MG TABLET. PO SCH (07:53)
[2018-11-25] MEDS: LACTOBACILLUS RHAMNOSUS GG 1 CAPSULE. PO SCH ×2 (07:53→20:07)
--- NOTE | 2018-11-25 12:20 | PN ---
DATE: 11/24/2018 PSYCHIATRIC PROGRESS NOTE This note covers elements not covered in my initial note. SUBJECTIVE: I met with the patient in the evening. The patient slept 6 hours previous night. I spent a long visit with her discussing her progress. She has been much more coherent, appropriate. Her visited today and reportedly danced in the groups as well and she was able to relate this. REVIEW OF SYSTEMS: No CV, , pulmonary, eye, ENT system symptoms on review. MENTAL STATUS EXAM: Oriented to herself and situation. Speech is coherent, abstraction fair, computation impaired, language function intact, attention span short. Mood and affect is improved. LABORATORY DATA: Reviewed. IMPRESSION: Unchanged from initial note. PLAN: No change from initial note. She remains on Luvox increased to 50 mg at bedtime, Risperdal 0.75 mg a day and trazodone scheduled and p.r.n. MAN Puma HILARIO MD DR: SELVIN/nathaniel JOB#: [id number] / [id number]
[2018-11-25 16:15] VITALS: BP 135/80
--- NOTE | 2018-11-25 16:50 | NUR ---
Patient has had a good day with no new behaviors. Spoke to family on the phone this morning and participated in all group treatment activities. Has taken all medications with out complaint, is currently socializing in the day room. Will continue to monitor.
[2018-11-25] MEDS: traZODone 50 MG TABLET. PO SCH (20:07)
[2018-11-25] MEDS: risperiDONE 0.5 MG TABLET. PO SCH (20:07)
--- NOTE | 2018-11-25 21:36 | NUR ---
Patient watching a movie on TV in day room with peers. Appropriate and social with peers and staff. Patient showered and staff blow dried her hair per her request. She was compliant with medications and cooperative. There has been less wandering and she no longer stands at the nurses station staring at staff.
--- NOTE | 2018-11-25 22:34 | PDOC ---
Exam Note: Hermann Note: Please also refer to the separate dictated note~for this date of service dictated separately.~Patient seen individually. Discussed the patient with Nursing staff reviewed the chart.~Reviewed interim history and current functioning. Reviewed vital signs,~Labs/ Radiology~and current medications noted below. Continue current treatment with the changes noted in the dictated addendum note Assessment: Vital Signs: Vital Signs Date Time Temp Pulse Resp B/P (MAP) Pulse Ox O2 Delivery O2 Flow Rate FiO2 11/25/18 16:15 98.3 92 20 135/80 (98) 97 11/23/18 06:18 Room Air I&O Intake and Output 11/25/18 06:59 Intake Total 960 ml Balance 960 ml Intake Oral 960 ml Current Medications: Meds: Current Medications Acetaminophen (Tylenol) 650 mg PRN Q6HRS PRN PO PAIN / TEMP; Start 11/13/18 at 20:45 Multi-Ingredient Ointment (Analgesic Clio) 1 viktoriya PRN QID PRN TP MUSCLE PAIN; Start 11/13/18 at 20:45 Al Hydroxide/Mg Hydroxide (Mylanta Plus Xs) 15 ml PRN AFTMEALHC PRN PO DYSPEPSIA; Start 11/13/18 at 20:45 Magnesium Hydroxide (Milk Of Magnesia) 2,400 mg PRN QHS PRN PO CONSTIPATION; Start 11/13/18 at 20:45 Zolpidem Tartrate (Ambien) 5 mg PRN QHS PRN PO INSOMNIA; Start 11/13/18 at 21:15; Stop 11/18/18 at 19:22; Status DC Quetiapine Fumarate (SEROquel) 100 mg DAILY PO Last administered on 11/20/18at 08:23; Start 11/14/18 at 09:00; Stop 11/20/18 at 17:01; Status DC Quetiapine Fumarate (SEROquel) 200 mg QHS PO Last administered on 11/19/18at 20:07; Start 11/13/18 at 22:00; Stop 11/20/18 at 17:01; Status DC Cefdinir (Omnicef) 300 mg BID PO Last administered on 11/20/18at 19:37; Start 11/14/18 at 09:00; Stop 11/21/18 at 08:59; Status DC Diphenhydramine HCl (Benadryl) 25 mg PRN QHS PRN PO INSOMNIA Last administered on 11/16/18 23:57; Start 11/13/18 at 22:00 Multivitamins/ Calcium (Thera-M Plus) 1 tab DAILY PO Last administered on 11/25/18at 07:53; Start 11/14/18 at 09:00 Nicotine Polacrilex (Nicorette Gum) 2 mg PRN Q2HR PRN BC SMOKING CESSATION; Start 11/13/18 at 22:00 Lactobacillus Rhamnosus (Culturelle) 1 cap BID PO Last administered on 11/25/18 at 20:07; Start 11/15/18 at 21:00 Vitamin D (Vitamin D3) 50,000 unit WEEKLY PO Last administered on 11/23/18at 10:05; Start 11/16/18 at 15:15 Olanzapine (ZyPREXA ZYDIS) 2.5 mg PRN Q2HR PRN PO ANXIETY / AGITATION Last administered on 11/16/18 18:31; Start 11/16/18 at 18:15 Fluvoxamine Maleate (Luvox) 25 mg HS PO Last administered on 11/22/18 19:33; Start 11/20/18 at 21:00; Stop 11/23/18 at 20:59; Status DC Risperidone (RisperDAL) 0.25 mg DAILY PO Last administered on 11/25/18at 07:53; Start 11/21/18 at 09:00 Risperidone (RisperDAL) 0.5 mg QHS PO Last administered on 11/25/18 20:07; Start 11/20/18 at 21:00 Trazodone HCl (Desyrel) 50 mg QHS PO Last administered on 11/25/18 20:07; Start 11/21/18 at 21:00 Trazodone HCl (Desyrel) 50 mg PRN QHS PRN PO INSOMNIA; Start 11/21/18 at 12:30 Fluvoxamine Maleate (Luvox) 50 mg HS PO Last administered on 11/25/18at 20:07; Start 11/23/18 at 21:00 Active Scripts Active Reported Zzzquil (Diphenhydramine Hcl) 25 Mg Capsule 25 Mg PO PRN QHS PRN Seroquel (Quetiapine Fumarate) 200 Mg Tablet 200 Mg PO QHS Seroquel (Quetiapine Fumarate) 100 Mg Tablet 100 Mg PO DAILY Nicorette (Nicotine Polacrilex) 2 Mg Gum 2 Mg BC PRN Q2HR PRN Centrum Silver Tablet (Multivits-Min/Fa/Lycopene/Lut) 1 Each Tablet 1 Each PO DAILY Cefpodoxime Proxetil 200 Mg Tablet 200 Mg PO BID Ambien (Zolpidem Tartrate) 5 Mg Tablet 5 Mg PO PRN QHS PRN I have reviewed the current psychotropics carefully including drug interactions. Risk benefit ratio favors no change other than as noted in my dictated progress note. Diagnosis: Problems: (1) Mood disorder (2) Unspecified psychosis (3) Bipolar affective, mixed, sev w/ psych (4) Mild cognitive disorder (5) History of schizophrenia (6) Schizoaffective disorder, chronic condition with acute exacerbation (7) Dementia, vascular, with delusions (8) Dementia, vascular, with depression (9) Dementia in Alzheimer's disease with delusions (10) Dementia in Alzheimer's disease with depression ASHLEE HILARIO MD November 25, 2018 22:34
--- NOTE | 2018-11-25 23:28 | PN ---
DATE: 11/25/2018 PSYCHIATRIC PROGRESS NOTE This note covers elements not covered in my initial note 11/25/2018. SUBJECTIVE: I met with the patient in the evening. The patient slept 6 hours previous night. She was up at the nursing station at 7:00 a.m., wanting to call her . She was redirected to make a call later in the day, then did okay the rest of the day. When I questioned her, she said her did not come because she had gone for Memorial Day together with the rest of the family. REVIEW OF SYSTEMS: No CV, , pulmonary, eye, ENT system symptoms on review. MENTAL STATUS EXAM: Oriented to herself and situation. Speech is coherent, abstraction fair, computation impaired, language function intact, attention span short. Mood and affect showing improvement, less lability. LABORATORY DATA: Reviewed. IMPRESSION: Unchanged from initial note. PLAN: No change from initial note. MAN Puma HILARIO MD DR: SELVIN/nathaniel JOB#: [id number] / [id number]
--- NOTE | 2018-11-25 23:59 | PN ---
DATE: 11/22/2018 PSYCHIATRIC PROGRESS NOTE This late entry 11/22/2018 covers elements not covered in my initial note. SUBJECTIVE: I met with the patient in the evening of 11/22/2018. The patient slept 6-1/4 hours previous night. She remains anxious, somewhat obsessive about brushing her teeth, but less manic and less psychotic. REVIEW OF SYSTEMS: No CV, , pulmonary, eye, ENT system symptoms on review. Reliability varies. MENTAL STATUS EXAM: Oriented to herself and situation. Speech is coherent, a little pressured at times. Abstraction fair, computation impaired, language function intact, attention span short. Mood and affect remain somewhat anxious, less paranoid, less obsessive. No suicidal or homicidal ideation. LABORATORY DATA: Reviewed. IMPRESSION: Unchanged from initial note. PLAN: Increase Luvox from 25 mg at bedtime to 50 mg at bedtime after she has been on 25 for 3 days. Maintain Risperdal 0.5 mg at bedtime, 0.25 mg in the morning. Christa adamsonrandrea. ASHLEE HILARIO MD DR: SELVIN/nathaniel JOB#: [id number] / [id number]
--- NOTE | 2018-11-26 00:59 | PN ---
DATE: 11/23/2018 PSYCHIATRIC PROGRESS NOTE This late entry 11/23/2018 covers elements not covered in my initial note. SUBJECTIVE: I met with the patient in the evening. The patient slept 7-3/4 hours previous night. Her had come to visit her and she is pleased with this, and remembered date as I questioned her in the evening. REVIEW OF SYSTEMS: No CV, , pulmonary, eye, ENT system symptoms on review. Reliability poor. MENTAL STATUS EXAM: Oriented to herself and situation. Speech is coherent, abstraction fair, computation impaired, language function intact, attention span short. Mood and affect somewhat withdrawn, less anxious, labile. LABORATORY DATA: Reviewed. IMPRESSION: Unchanged from initial note. PLAN: No change from initial note. MAN Puma HILARIO MD DR: SELVIN/nathaniel JOB#: [id number] / [id number]
[2018-11-26 06:02] VITALS: BP 165/84
[2018-11-26] MEDS: MULTIVITAMIN with MINERAL TABLET. PO SCH (08:51)
[2018-11-26] MEDS: risperiDONE 0.25 MG TABLET. PO SCH (08:51)
[2018-11-26] MEDS: LACTOBACILLUS RHAMNOSUS GG 1 CAPSULE. PO SCH ×2 (08:52→19:55)
--- NOTE | 2018-11-26 09:00 | NUR ---
Nursing Note: Assumed care of pt approx 0700. Pt compliant w/ meds taken whole, cooperative with assessment. Pt alert and oriented, calm, wandering the hallway, asked this nurse for paper to work on her "report that will be due soon."
--- NOTE | 2018-11-26 15:15 | NUR ---
Nursing Note: Pt's visited at lunch and requested a copy of med list. and pt were working a list of tasks and questions to prepare for pt's upcoming operation concerning parathyroid issue.
[2018-11-26 16:33] VITALS: BP 112/71
[2018-11-26] MEDS: traZODone 50 MG TABLET. PO SCH (19:55)
[2018-11-26] MEDS: risperiDONE 0.5 MG TABLET. PO SCH (19:55)
--- NOTE | 2018-11-26 22:33 | NUR ---
Pt. in the secure hallway this evening due to weather when this fha underwriter came on shift. She has been calm and interacting appropriately with staff and other patients. She has been compliant with taking her HS medications this evening.
--- NOTE | 2018-11-26 22:38 | PDOC ---
Exam Note: Hermann Note: Please also refer to the separate dictated note~for this date of service dictated separately.~Patient seen individually. Discussed the patient with Nursing staff reviewed the chart.~Reviewed interim history and current functioning. Reviewed vital signs,~Labs/ Radiology~and current medications noted below. Continue current treatment with the changes noted in the dictated addendum note Assessment: Vital Signs: Vital Signs Date Time Temp Pulse Resp B/P (MAP) Pulse Ox O2 Delivery O2 Flow Rate FiO2 11/26/18 16:33 98.0 55 16 112/71 (85) 96 Room Air I&O Intake and Output 11/26/18 06:59 Intake Total 1200 ml Balance 1200 ml Intake Oral 1200 ml # Voids 1 # Bowel Movements 1 Current Medications: Meds: Current Medications Acetaminophen (Tylenol) 650 mg PRN Q6HRS PRN PO PAIN / TEMP; Start 11/13/18 at 20:45 Multi-Ingredient Ointment (Analgesic Holmes) 1 viktoriya PRN QID PRN TP MUSCLE PAIN; Start 11/13/18 at 20:45 Al Hydroxide/Mg Hydroxide (Mylanta Plus Xs) 15 ml PRN AFTMEALHC PRN PO DYSPEPSIA; Start 11/13/18 at 20:45 Magnesium Hydroxide (Milk Of Magnesia) 2,400 mg PRN QHS PRN PO CONSTIPATION; Start 11/13/18 at 20:45 Zolpidem Tartrate (Ambien) 5 mg PRN QHS PRN PO INSOMNIA; Start 11/13/18 at 21:15; Stop 11/18/18 at 19:22; Status DC Quetiapine Fumarate (SEROquel) 100 mg DAILY PO Last administered on 11/20/18at 08:23; Start 11/14/18 at 09:00; Stop 11/20/18 at 17:01; Status DC Quetiapine Fumarate (SEROquel) 200 mg QHS PO Last administered on 11/19/18at 20:07; Start 11/13/18 at 22:00; Stop 11/20/18 at 17:01; Status DC Cefdinir (Omnicef) 300 mg BID PO Last administered on 11/20/18at 19:37; Start 11/14/18 at 09:00; Stop 11/21/18 at 08:59; Status DC Diphenhydramine HCl (Benadryl) 25 mg PRN QHS PRN PO INSOMNIA Last administered on 11/16/18 23:57; Start 11/13/18 at 22:00 Multivitamins/ Calcium (Thera-M Plus) 1 tab DAILY PO Last administered on 11/26/18 08:51; Start 11/14/18 at 09:00 Nicotine Polacrilex (Nicorette Gum) 2 mg PRN Q2HR PRN BC SMOKING CESSATION; Start 11/13/18 at 22:00 Lactobacillus Rhamnosus (Culturelle) 1 cap BID PO Last administered on 11/26/18 19:55; Start 11/15/18 at 21:00 Vitamin D (Vitamin D3) 50,000 unit WEEKLY PO Last administered on 11/23/18 10:05; Start 11/16/18 at 15:15 Olanzapine (ZyPREXA ZYDIS) 2.5 mg PRN Q2HR PRN PO ANXIETY / AGITATION Last administered on 11/16/18 18:31; Start 11/16/18 at 18:15 Fluvoxamine Maleate (Luvox) 25 mg HS PO Last administered on 11/22/18 19:33; Start 11/20/18 at 21:00; Stop 11/23/18 at 20:59; Status DC Risperidone (RisperDAL) 0.25 mg DAILY PO Last administered on 11/26/18 08:51; Start 11/21/18 at 09:00 Risperidone (RisperDAL) 0.5 mg QHS PO Last administered on 11/26/18 19:55; Start 11/20/18 at 21:00 Trazodone HCl (Desyrel) 50 mg QHS PO Last administered on 11/26/18 19:55; Start 11/21/18 at 21:00 Trazodone HCl (Desyrel) 50 mg PRN QHS PRN PO INSOMNIA; Start 11/21/18 at 12:30 Fluvoxamine Maleate (Luvox) 50 mg HS PO Last administered on 11/26/18 19:55; Start 11/23/18 at 21:00 Active Scripts Active Reported Zzzquil (Diphenhydramine Hcl) 25 Mg Capsule 25 Mg PO PRN QHS PRN Seroquel (Quetiapine Fumarate) 200 Mg Tablet 200 Mg PO QHS Seroquel (Quetiapine Fumarate) 100 Mg Tablet 100 Mg PO DAILY Nicorette (Nicotine Polacrilex) 2 Mg Gum 2 Mg BC PRN Q2HR PRN Centrum Silver Tablet (Multivits-Min/Fa/Lycopene/Lut) 1 Each Tablet 1 Each PO DAILY Cefpodoxime Proxetil 200 Mg Tablet 200 Mg PO BID Ambien (Zolpidem Tartrate) 5 Mg Tablet 5 Mg PO PRN QHS PRN I have reviewed the current psychotropics carefully including drug interactions. Risk benefit ratio favors no change other than as noted in my dictated progress note. Diagnosis: Problems: (1) Mood disorder (2) Unspecified psychosis (3) Bipolar affective, mixed, sev w/ psych (4) Mild cognitive disorder (5) History of schizophrenia (6) Schizoaffective disorder, chronic condition with acute exacerbation (7) Dementia, vascular, with delusions (8) Dementia, vascular, with depression (9) Dementia in Alzheimer's disease with delusions (10) Dementia in Alzheimer's disease with depression ASHLEE HILARIO MD November 26, 2018 22:38
--- NOTE | 2018-11-26 23:01 | PN ---
DATE: 11/26/2018 PSYCHIATRIC PROGRESS NOTE This note covers elements not covered in my initial note 11/26/2018. SUBJECTIVE: I met with the patient in the evening. The patient slept 7-3/4 hours previous night. She is compliant with her medications, alert, oriented, wanted paper and pencil to make notes for her surgeon that she had questions with planned surgery for her upcoming. REVIEW OF SYSTEMS: No CV, , pulmonary, eye, ENT system symptoms on review. MENTAL STATUS EXAM: Oriented to herself and situation. Speech coherent, abstraction fair, computation impaired, language function intact, attention span short. She is much less psychotic, much improved. No suicidal or homicidal ideation. LABORATORY DATA: Reviewed. IMPRESSION: Unchanged from initial note. PLAN: No change from initial note. MAN Puma HILARIO MD DR: SELVIN/nathaniel JOB#: [id number] / [id number]
[2018-11-27 06:07] VITALS: BP 127/80
[2018-11-27] MEDS: LACTOBACILLUS RHAMNOSUS GG 1 CAPSULE. PO SCH ×2 (09:20→19:32)
[2018-11-27] MEDS: MULTIVITAMIN with MINERAL TABLET. PO SCH (09:20)
[2018-11-27] MEDS: risperiDONE 0.25 MG TABLET. PO SCH (09:20)
[2018-11-27 16:34] VITALS: BP 123/78
[2018-11-27] MEDS: traZODone 50 MG TABLET. PO SCH (19:33)
[2018-11-27] MEDS: risperiDONE 0.5 MG TABLET. PO SCH (19:33)
--- NOTE | 2018-11-27 22:27 | PDOC ---
Exam Note: Hermann Note: Please also refer to the separate dictated note~for this date of service dictated separately.~Patient seen individually. Discussed the patient with Nursing staff reviewed the chart.~Reviewed interim history and current functioning. Reviewed vital signs,~Labs/ Radiology~and current medications noted below. Continue current treatment with the changes noted in the dictated addendum note Assessment: Vital Signs: Vital Signs Date Time Temp Pulse Resp B/P (MAP) Pulse Ox O2 Delivery O2 Flow Rate FiO2 11/27/18 16:34 98.5 65 16 123/78 (93) 95 11/27/18 06:07 Room Air I&O Intake and Output 11/27/18 07:00 Intake Total 1200 ml Balance 1200 ml Intake Oral 1200 ml Current Medications: Meds: Current Medications Acetaminophen (Tylenol) 650 mg PRN Q6HRS PRN PO PAIN / TEMP; Start 11/13/18 at 20:45 Multi-Ingredient Ointment (Analgesic [place]) 1 viktoriya PRN QID PRN TP MUSCLE PAIN; Start 11/13/18 at 20:45 Al Hydroxide/Mg Hydroxide (Mylanta Plus Xs) 15 ml PRN AFTMEALHC PRN PO DYSPEPSIA; Start 11/13/18 at 20:45 Magnesium Hydroxide (Milk Of Magnesia) 2,400 mg PRN QHS PRN PO CONSTIPATION; Start 11/13/18 at 20:45 Zolpidem Tartrate (Ambien) 5 mg PRN QHS PRN PO INSOMNIA; Start 11/13/18 at 21:15; Stop 11/18/18 at 19:22; Status DC Quetiapine Fumarate (SEROquel) 100 mg DAILY PO Last administered on 11/20/18at 08:23; Start 11/14/18 at 09:00; Stop 11/20/18 at 17:01; Status DC Quetiapine Fumarate (SEROquel) 200 mg QHS PO Last administered on 11/19/18at 20:07; Start 11/13/18 at 22:00; Stop 11/20/18 at 17:01; Status DC Cefdinir (Omnicef) 300 mg BID PO Last administered on 11/20/18at 19:37; Start 11/14/18 at 09:00; Stop 11/21/18 at 08:59; Status DC Diphenhydramine HCl (Benadryl) 25 mg PRN QHS PRN PO INSOMNIA Last administered on 11/16/18 23:57; Start 11/13/18 at 22:00 Multivitamins/ Calcium (Thera-M Plus) 1 tab DAILY PO Last administered on 11/27/18 09:20; Start 11/14/18 at 09:00 Nicotine Polacrilex (Nicorette Gum) 2 mg PRN Q2HR PRN BC SMOKING CESSATION; Start 11/13/18 at 22:00 Lactobacillus Rhamnosus (Culturelle) 1 cap BID PO Last administered on 11/27 19:32; Start 11/15/18 at 21:00 Vitamin D (Vitamin D3) 50,000 unit WEEKLY PO Last administered on 11/23/18 10:05; Start 11/16/18 at 15:15 Olanzapine (ZyPREXA ZYDIS) 2.5 mg PRN Q2HR PRN PO ANXIETY / AGITATION Last administered on 11/16/18 18:31; Start 11/16/18 at 18:15 Fluvoxamine Maleate (Luvox) 25 mg HS PO Last administered on 11/22/18 19:33; Start 11/20/18 at 21:00; Stop 11/23/18 at 20:59; Status DC Risperidone (RisperDAL) 0.25 mg DAILY PO Last administered on 11/27/18 09:20; Start 11/21/18 at 09:00 Risperidone (RisperDAL) 0.5 mg QHS PO Last administered on 11/27/18 19:33; Start 11/20/18 at 21:00 Trazodone HCl (Desyrel) 50 mg QHS PO Last administered on 11/27/18 19:33; Start 11/21/18 at 21:00 Trazodone HCl (Desyrel) 50 mg PRN QHS PRN PO INSOMNIA; Start 11/21/18 at 12:30 Fluvoxamine Maleate (Luvox) 50 mg HS PO Last administered on 11/27/18 19:32; Start 11/23/18 at 21:00 Active Scripts Active Reported Zzzquil (Diphenhydramine Hcl) 25 Mg Capsule 25 Mg PO PRN QHS PRN Seroquel (Quetiapine Fumarate) 200 Mg Tablet 200 Mg PO QHS Seroquel (Quetiapine Fumarate) 100 Mg Tablet 100 Mg PO DAILY Nicorette (Nicotine Polacrilex) 2 Mg Gum 2 Mg BC PRN Q2HR PRN Centrum Silver Tablet (Multivits-Min/Fa/Lycopene/Lut) 1 Each Tablet 1 Each PO DAILY Cefpodoxime Proxetil 200 Mg Tablet 200 Mg PO BID Ambien (Zolpidem Tartrate) 5 Mg Tablet 5 Mg PO PRN QHS PRN I have reviewed the current psychotropics carefully including drug interactions. Risk benefit ratio favors no change other than as noted in my dictated progress note. Diagnosis: Problems: (1) Dementia in Alzheimer's disease with depression (2) Dementia in Alzheimer's disease with delusions (3) Dementia, vascular, with depression (4) Dementia, vascular, with delusions (5) Schizoaffective disorder, chronic condition with acute exacerbation (6) History of schizophrenia (7) Mild cognitive disorder (8) Bipolar affective, mixed, sev w/ psych (9) Unspecified psychosis (10) Mood disorder ASHLEE HILARIO MD November 27, 2018 22:27
--- NOTE | 2018-11-27 23:00 | NUR ---
Pt. this evening was sitting in the middle hallway writing a letter, when this entry writer checked on her. She has been calm, pleasant, and interacting appropriately with the staff and other patient's. She has been compliant with taking her HS medications this evening.
[2018-11-28 06:17] VITALS: BP 156/68
[2018-11-28] MEDS: risperiDONE 0.25 MG TABLET. PO SCH (09:07)
[2018-11-28] MEDS: LACTOBACILLUS RHAMNOSUS GG 1 CAPSULE. PO SCH ×2 (09:07→20:31)
[2018-11-28] MEDS: MULTIVITAMIN with MINERAL TABLET. PO SCH (09:07)
--- NOTE | 2018-11-28 09:57 | NUR ---
WEEKLY ACTIVITY THERAPY NOTE Date of Admission: 11/13/2018 Date of AT Assessment: 11/16/2018 Goal aimed: to increase stress management and recreation education Initial Goal: Pt will participate in at least three activity therapy groups per week. Weekly progress towards goal: exceeded Group participation level: moderate average Weekly highlights: full participation in both groups on Sunday, singing in microphone on Sunday afternoon Behaviors observed: calm, alert, pleasant, late to a lot of groups, participated in every group offered Plan: change goal to: Pt. will participate in all groups she's invited to Beneficial adaptations: direct prompting, hints/clues, reminders, needs
--- NOTE | 2018-11-28 12:19 | NUR ---
WEEKLY NOTE: Safia has been sleeping an average of 6.5 hours and intakes of meals are good. She has been medication compliant with no hallucinations or delusions noted by staff. She has been an active participant in group activities. Safia will discharge to home on 12/02/18, spouse to transport at 10:30am. Dr. Bolaños, psychiatrist, appointment is scheduled for 01/03/19 but spouse is going to call and see if it can be moved up. Safia is also scheduled for thyroid surgery on 12/05/18. Will proceed with discharge planning.
--- NOTE | 2018-11-28 13:43 | NUR ---
Patient has had a good morning, took medications, allowed for morning assessment. Patient was in the hallway writing a letter upon nursing assessment. No signs of agitation noted, patient is calm, visiting to staff members. Will continue to monitor.
[2018-11-28 15:47] VITALS: BP 109/72
[2018-11-28] MEDS: risperiDONE 0.5 MG TABLET. PO SCH (20:29)
[2018-11-28] MEDS: traZODone 50 MG TABLET. PO SCH (20:29)
--- NOTE | 2018-11-28 22:27 | NUR ---
Pt. this evening was out in the day room watching TV, when this keno writer came on shift. She has been calm, pleasant, and interacting appropriately with staff and other pt's. She has been compliant with taking her HS medications this evening.
--- NOTE | 2018-11-28 22:27 | PDOC ---
Exam Note: Hermann Note: Please also refer to the separate dictated note~for this date of service dictated separately.~Patient seen individually. Discussed the patient with Nursing staff reviewed the chart.~Reviewed interim history and current functioning. Reviewed vital signs,~Labs/ Radiology~and current medications noted below. Continue current treatment with the changes noted in the dictated addendum note Assessment: Vital Signs: Vital Signs Date Time Temp Pulse Resp B/P (MAP) Pulse Ox O2 Delivery O2 Flow Rate FiO2 11/28/18 15:47 98.2 50 16 109/72 (84) 97 11/27/18 06:07 Room Air I&O Intake and Output 11/28/18 07:00 Intake Total 840 ml Balance 840 ml Intake Oral 840 ml # Voids 1 Current Medications: Meds: Current Medications Acetaminophen (Tylenol) 650 mg PRN Q6HRS PRN PO PAIN / TEMP; Start 11/13/18 at 20:45 Multi-Ingredient Ointment (Analgesic [place]) 1 viktoriya PRN QID PRN TP MUSCLE PAIN; Start 11/13/18 at 20:45 Al Hydroxide/Mg Hydroxide (Mylanta Plus Xs) 15 ml PRN AFTMEALHC PRN PO DYSPEPSIA; Start 11/13/18 at 20:45 Magnesium Hydroxide (Milk Of Magnesia) 2,400 mg PRN QHS PRN PO CONSTIPATION; Start 11/13/18 at 20:45 Zolpidem Tartrate (Ambien) 5 mg PRN QHS PRN PO INSOMNIA; Start 11/13/18 at 21:15; Stop 11/18/18 at 19:22; Status DC Quetiapine Fumarate (SEROquel) 100 mg DAILY PO Last administered on 11/20/18at 08:23; Start 11/14/18 at 09:00; Stop 11/20/18 at 17:01; Status DC Quetiapine Fumarate (SEROquel) 200 mg QHS PO Last administered on 11/19/18at 20:07; Start 11/13/18 at 22:00; Stop 11/20/18 at 17:01; Status DC Cefdinir (Omnicef) 300 mg BID PO Last administered on 11/20/18at 19:37; Start 11/14/18 at 09:00; Stop 11/21/18 at 08:59; Status DC Diphenhydramine HCl (Benadryl) 25 mg PRN QHS PRN PO INSOMNIA Last administered on 11/16/18 23:57; Start 11/13/18 at 22:00 Multivitamins/ Calcium (Thera-M Plus) 1 tab DAILY PO Last administered on 11/28/18 09:07; Start 11/14/18 at 09:00 Nicotine Polacrilex (Nicorette Gum) 2 mg PRN Q2HR PRN BC SMOKING CESSATION; Start 11/13/18 at 22:00 Lactobacillus Rhamnosus (Culturelle) 1 cap BID PO Last administered on 11/28/18 20:31; Start 11/15/18 at 21:00 Vitamin D (Vitamin D3) 50,000 unit WEEKLY PO Last administered on 11/23/18 10:05; Start 11/16/18 at 15:15 Olanzapine (ZyPREXA ZYDIS) 2.5 mg PRN Q2HR PRN PO ANXIETY / AGITATION Last administered on 11/16/18 18:31; Start 11/16/18 at 18:15 Fluvoxamine Maleate (Luvox) 25 mg HS PO Last administered on 11/22/18 19:33; Start 11/20/18 at 21:00; Stop 11/23/18 at 20:59; Status DC Risperidone (RisperDAL) 0.25 mg DAILY PO Last administered on 11/28/18 09:07; Start 11/21/18 at 09:00 Risperidone (RisperDAL) 0.5 mg QHS PO Last administered on 11/28/18 20:29; Start 11/20/18 at 21:00 Trazodone HCl (Desyrel) 50 mg QHS PO Last administered on 11/28/18 20:29; Start 11/21/18 at 21:00 Trazodone HCl (Desyrel) 50 mg PRN QHS PRN PO INSOMNIA; Start 11/21/18 at 12:30 Fluvoxamine Maleate (Luvox) 50 mg HS PO Last administered on 11/28/18 20:30; Start 11/23/18 at 21:00 Active Scripts Active Reported Zzzquil (Diphenhydramine Hcl) 25 Mg Capsule 25 Mg PO PRN QHS PRN Seroquel (Quetiapine Fumarate) 200 Mg Tablet 200 Mg PO QHS Seroquel (Quetiapine Fumarate) 100 Mg Tablet 100 Mg PO DAILY Nicorette (Nicotine Polacrilex) 2 Mg Gum 2 Mg BC PRN Q2HR PRN Centrum Silver Tablet (Multivits-Min/Fa/Lycopene/Lut) 1 Each Tablet 1 Each PO DAILY Cefpodoxime Proxetil 200 Mg Tablet 200 Mg PO BID Ambien (Zolpidem Tartrate) 5 Mg Tablet 5 Mg PO PRN QHS PRN I have reviewed the current psychotropics carefully including drug interactions. Risk benefit ratio favors no change other than as noted in my dictated progress note. Diagnosis: Problems: (1) Mood disorder (2) Unspecified psychosis (3) Bipolar affective, mixed, sev w/ psych (4) Mild cognitive disorder (5) History of schizophrenia (6) Schizoaffective disorder, chronic condition with acute exacerbation (7) Dementia, vascular, with delusions (8) Dementia, vascular, with depression (9) Dementia in Alzheimer's disease with delusions (10) Dementia in Alzheimer's disease with depression ASHLEE HILARIO MD November 28, 2018 22:27
[2018-11-28] MEDS: diphenhydrAMINE HCL 25 MG CAPSULE PO PRN (23:03)
[2018-11-28] MEDS: ACETAMINOPHEN 325 MG TABLET PO PRN (23:03)
[2018-11-29 05:58] VITALS: BP 156/82
[2018-11-29 07:50] LABS: BASO % 1 % (0-3); EOS # 0.1 x10^3/uL (0.0-0.7); EOS % 2 % (0-3); HEMATOCRIT 43.3 % (36.0-47.0); HEMOGLOBIN 14.6 g/dL (12.0-15.5); LYMPH # 1.4 x10^3/uL (1.0-4.8); LYMPH % 24 % (24-48); MEAN CORPUSCULAR HEMOGLOBIN 31 pg (25-35); MEAN CORPUSCULAR HGB CONC 34 g/dL (31-37); MEAN CORPUSCULAR VOLUME 92 fL (79-100); MONO # 0.5 x10^3/uL (0.0-1.1); MONO % 9 % (0-9); NEUT # 3.7 x10^3uL (1.8-7.7); NEUT % 64 % (31-73); PLATELET COUNT 275 x10^3/uL (140-400); RED BLOOD COUNT 4.74 x10^6/uL (3.50-5.40); RED CELL DISTRIBUTION WIDTH 13.4 % (11.5-14.5); WHITE BLOOD COUNT 5.7 x10^3/uL (4.0-11.0)
[2018-11-29 08:04] LABS: ALBUMIN 3.1 g/dL (3.4-5.0); ALBUMIN/GLOBULIN RATIO 1.1 (1.0-1.7); CALCIUM 10.7 mg/dL (8.5-10.1); CREATININE 0.9 mg/dL (0.6-1.0); GFR 61.7; POTASSIUM 4.2 mmol/L (3.5-5.1); TOTAL BILIRUBIN 0.3 mg/dL (0.2-1.0); TOTAL PROTEIN 5.8 g/dL (6.4-8.2)
--- NOTE | 2018-11-29 08:24 | NUR ---
[facility] Social Work Discharge Planning Form Patient Name SAFIA CORTES Admit Date: 11/13/2018 DISCHARGE PLAN Discharge Destination: Home with spouse Care Assessment: N/A Transportation: Spouse will transport on 12/02/18 at 10:30am. Special Instructions/Notes: Safia has a follow up appointment with Dr. Bolaños, psychiatrist, on December 11, 2018 at 9:45am. Safia has a follow up appointment with Dr. Andres, PCP, on December 04, 2018 at 9:30am. Safia is scheduled to have thyroid surgery on 12/05/18. DISCHARGE TO HOME: Address: [address] [place] [address] Responsible Republican: Jeffrey Cortes, spouse Pharmacy: [facility], Psychiatrist/Mental Health Follow Up: Dr. Neptali Bolaños [phone], (fax) Primary Care Follow Up: Dr. Nicho Andres [phone], (fax)
[2018-11-29] MEDS: risperiDONE 0.25 MG TABLET. PO SCH (09:31)
[2018-11-29] MEDS: MULTIVITAMIN with MINERAL TABLET. PO SCH (09:31)
[2018-11-29] MEDS: LACTOBACILLUS RHAMNOSUS GG 1 CAPSULE. PO SCH ×2 (09:31→19:43)
--- NOTE | 2018-11-29 11:33 | NUR ---
Patient has had a great morning, has taken medications, allowed for morning assessment. Was in the hallway working on writing letter upon assessment. Has been smiling, visiting with staff and other patients. No signs of agitation noted at this time, will continue to monitor.
[2018-11-29 16:22] VITALS: BP 140/80
[2018-11-29] MEDS: risperiDONE 0.5 MG TABLET. PO SCH (19:42)
[2018-11-29] MEDS: traZODone 50 MG TABLET. PO SCH (19:45)
[2018-11-29] MEDS: ACETAMINOPHEN 325 MG TABLET PO PRN (20:04)
--- NOTE | 2018-11-29 22:37 | PDOC ---
Exam Note: Hermann Note: Please also refer to the separate dictated note~for this date of service dictated separately.~Patient seen individually. Discussed the patient with Nursing staff reviewed the chart.~Reviewed interim history and current functioning. Reviewed vital signs,~Labs/ Radiology~and current medications noted below. Continue current treatment with the changes noted in the dictated addendum note Assessment: Vital Signs: Vital Signs Date Time Temp Pulse Resp B/P (MAP) Pulse Ox O2 Delivery O2 Flow Rate FiO2 11/29/18 16:22 98.1 65 16 140/80 (100) 9 Room Air I&O Intake and Output 11/29/18 06:59 Intake Total 1200 ml Balance 1200 ml Intake Oral 1200 ml # Voids 1 Labs: Laboratory Tests Test 11/29/18 07:19 White Blood Count 5.7 x10^3/uL (4.0-11.0) Red Blood Count 4.74 x10^6/uL (3.50-5.40) Hemoglobin 14.6 g/dL (12.0-15.5) Hematocrit 43.3 % (36.0-47.0) Mean Corpuscular Volume 92 fL (79-100) Mean Corpuscular Hemoglobin 31 pg (25-35) Mean Corpuscular Hemoglobin Concent 34 g/dL (31-37) Red Cell Distribution Width 13.4 % (11.5-14.5) Platelet Count 275 x10^3/uL (140-400) Neutrophils (%) (Auto) 64 % (31-73) Lymphocytes (%) (Auto) 24 % (24-48) Monocytes (%) (Auto) 9 % (0-9) Eosinophils (%) (Auto) 2 % (0-3) Basophils (%) (Auto) 1 % (0-3) Neutrophils # (Auto) 3.7 x10^3uL (1.8-7.7) Lymphocytes # (Auto) 1.4 x10^3/uL (1.0-4.8) Monocytes # (Auto) 0.5 x10^3/uL (0.0-1.1) Eosinophils # (Auto) 0.1 x10^3/uL (0.0-0.7) Basophils # (Auto) 0.0 x10^3/uL (0.0-0.2) Sodium Level 145 mmol/L (136-145) Potassium Level 4.2 mmol/L (3.5-5.1) Chloride Level 110 mmol/L (98-107) H Carbon Dioxide Level 28 mmol/L (21-32) Anion Gap 7 (6-14) Blood Urea Nitrogen 16 mg/dL (7-20) Creatinine 0.9 mg/dL (0.6-1.0) Estimated GFR (Cockcroft-Gault) 61.7 BUN/Creatinine Ratio 18 (6-20) Glucose Level 85 mg/dL (70-99) Calcium Level 10.7 mg/dL (8.5-10.1) H Total Bilirubin 0.3 mg/dL (0.2-1.0) Aspartate Amino Transferase (AST) 12 U/L (15-37) L Alanine Aminotransferase (ALT) 28 U/L (14-59) Alkaline Phosphatase 70 U/L (46-116) Total Protein 5.8 g/dL (6.4-8.2) L Albumin 3.1 g/dL (3.4-5.0) L Albumin/Globulin Ratio 1.1 (1.0-1.7) Current Medications: Meds: Current Medications Acetaminophen (Tylenol) 650 mg PRN Q6HRS PRN PO PAIN / TEMP Last administered on 11/29/18at 20:04; Start 11/13/18 at 20:45 Multi-Ingredient Ointment (Analgesic [place]) 1 viktoriya PRN QID PRN TP MUSCLE PAIN; Start 11/13/18 at 20:45 Al Hydroxide/Mg Hydroxide (Mylanta Plus Xs) 15 ml PRN AFTMEALHC PRN PO DYSPEPSIA; Start 11/13/18 at 20:45 Magnesium Hydroxide (Milk Of Magnesia) 2,400 mg PRN QHS PRN PO CONSTIPATION; Start 11/13/18 at 20:45 Zolpidem Tartrate (Ambien) 5 mg PRN QHS PRN PO INSOMNIA; Start 11/13/18 at 21:15; Stop 11/18/18 at 19:22; Status DC Quetiapine Fumarate (SEROquel) 100 mg DAILY PO Last administered on 11/20/18at 08:23; Start 11/14/18 at 09:00; Stop 11/20/18 at 17:01; Status DC Quetiapine Fumarate (SEROquel) 200 mg QHS PO Last administered on 11/19/18 20:07; Start 11/13/18 at 22:00; Stop 11/20/18 at 17:01; Status DC Cefdinir (Omnicef) 300 mg BID PO Last administered on 11/20/18 19:37; Start 11/14/18 at 09:00; Stop 11/21/18 at 08:59; Status DC Diphenhydramine HCl (Benadryl) 25 mg PRN QHS PRN PO INSOMNIA Last administered on 11/28/18 23:03; Start 11/13/18 at 22:00 Multivitamins/ Calcium (Thera-M Plus) 1 tab DAILY PO Last administered on 11/29/18 09:31; Start 11/14/18 at 09:00 Nicotine Polacrilex (Nicorette Gum) 2 mg PRN Q2HR PRN BC SMOKING CESSATION; Start 11/13/18 at 22:00 Lactobacillus Rhamnosus (Culturelle) 1 cap BID PO Last administered on 11/29/18 19:43; Start 11/15/18 at 21:00 Vitamin D (Vitamin D3) 50,000 unit WEEKLY PO Last administered on 11/23/18 10:05; Start 11/16/18 at 15:15 Olanzapine (ZyPREXA ZYDIS) 2.5 mg PRN Q2HR PRN PO ANXIETY / AGITATION Last administered on 11/16/18 18:31; Start 11/16/18 at 18:15 Fluvoxamine Maleate (Luvox) 25 mg HS PO Last administered on 11/22/18 19:33; Start 11/20/18 at 21:00; Stop 11/23/18 at 20:59; Status DC Risperidone (RisperDAL) 0.25 mg DAILY PO Last administered on 11/29/18 09:31; Start 11/21/18 at 09:00 Risperidone (RisperDAL) 0.5 mg QHS PO Last administered on 11/29/18 19:42; Start 11/20/18 at 21:00 Trazodone HCl (Desyrel) 50 mg QHS PO Last administered on 11/29/18 19:45; Start 11/21/18 at 21:00 Trazodone HCl (Desyrel) 50 mg PRN QHS PRN PO INSOMNIA; Start 11/21/18 at 12:30 Fluvoxamine Maleate (Luvox) 50 mg HS PO Last administered on 11/29/18at 19:43; Start 11/23/18 at 21:00 Active Scripts Active Reported Zzzquil (Diphenhydramine Hcl) 25 Mg Capsule 25 Mg PO PRN QHS PRN Seroquel (Quetiapine Fumarate) 200 Mg Tablet 200 Mg PO QHS Seroquel (Quetiapine Fumarate) 100 Mg Tablet 100 Mg PO DAILY Nicorette (Nicotine Polacrilex) 2 Mg Gum 2 Mg BC PRN Q2HR PRN Centrum Silver Tablet (Multivits-Min/Fa/Lycopene/Lut) 1 Each Tablet 1 Each PO DAILY Cefpodoxime Proxetil 200 Mg Tablet 200 Mg PO BID Ambien (Zolpidem Tartrate) 5 Mg Tablet 5 Mg PO PRN QHS PRN I have reviewed the current psychotropics carefully including drug interactions. Risk benefit ratio favors no change other than as noted in my dictated progress note. Diagnosis: Problems: (1) Mood disorder (2) Unspecified psychosis (3) Bipolar affective, mixed, sev w/ psych (4) Mild cognitive disorder (5) History of schizophrenia (6) Schizoaffective disorder, chronic condition with acute exacerbation (7) Dementia, vascular, with delusions (8) Dementia, vascular, with depression (9) Dementia in Alzheimer's disease with delusions (10) Dementia in Alzheimer's disease with depression ASHLEE HILARIO MD November 29, 2018 22:37
--- NOTE | 2018-11-29 23:03 | NUR ---
Nursing Note Pt complained of arthritic pain to her left shoulder. Compliant and cooperative with staff.
--- NOTE | 2018-11-30 00:18 | PN ---
DATE: 11/27/2018 PSYCHIATRIC PROGRESS NOTE This late entry 11/27/2018 covers elements not covered in my initial note. SUBJECTIVE: I met with the patient in the evening. The patient slept 6-1/4 hours previous night. She has been more appropriate, less confused, less psychotic. REVIEW OF SYSTEMS: No CV, , pulmonary, eye, ENT system symptoms on review. Reliability poor. MENTAL STATUS EXAM: Oriented to herself and situation. Speech coherent, somewhat anxious, a little pressured at times. Abstraction fair, computation impaired, language function intact, attention span short. Mood and affect is improved. LABORATORY DATA: Reviewed. IMPRESSION: Unchanged from initial note. PLAN: No change from initial note. MAN Puma HILARIO MD DR: SELVIN/nathaniel JOB#: [id number] / [id number]
--- NOTE | 2018-11-30 00:25 | PN ---
DATE: 11/28/2018 PSYCHIATRIC PROGRESS NOTE This late entry 11/28/2018 covers elements not covered in my initial note. SUBJECTIVE: I met with the patient at length in the evening of 11/28/2018 and staffed at a treatment team meeting with the entire team in the morning and the patient's attended the conference. We reviewed her history at some length, diagnosis, progress, current medications. is very pleased with the patient's rapid progress and improvement as her psychosis appears to have subsided significantly. She has been making copious notes for her upcoming surgery and questions for the surgeon seems quite appropriate with this. No CV, , pulmonary, eye system symptoms on review. MENTAL STATUS EXAM: Oriented reasonably. Speech is coherent, less pressured. Abstraction fair, computation impaired, language function intact, attention span short. Mood and affect is improved. LABORATORY DATA: Reviewed. IMPRESSION: Schizoaffective disorder, bipolar type, mixed with psychotic features versus schizophrenia, undifferentiated: Psychotic disorder, unspecified; anxiety disorder, unspecified. PLAN: Continue the patient on her current psychotropics. She did have a UTI, which could have contributed significantly to worsening of her psychosis, but for now she is doing well on Luvox for the additional obsessive symptoms. Risperdal total of 0.75 mg a day and trazodone at night for insomnia. Discussed that she should see a psychiatrist outpatient and consideration be given to tapering the Risperdal at some point even if it slightly and considering Depakote as a mood stabilizer if needed. Certainly her general medical condition and parathyroid status and upcoming surgery for this could be contributing to her psychiatric symptoms as well, which should improve, once these are addressed as is going to be done in the next few weeks. MAN Puma HILARIO MD DR: SELVIN/nathaniel JOB#: [id number] / [id number]
[2018-11-30] MEDS ORDERED: FLUV50TA2 PO (01:32)
[2018-11-30] MEDS ORDERED: TRAZ-120 PO ×2 (01:37→01:38)
[2018-11-30] MEDS ORDERED: RISP0.5T24 PO (03:07)
[2018-11-30] MEDS ORDERED: RISP0.2519 PO (03:08)
[2018-11-30] MEDS ORDERED: OLAN5TAB9 PO (03:09)
[2018-11-30] MEDS ORDERED: CHOL500021 PO (03:11)
[2018-11-30] MEDS ORDERED: LACT1CAP19 PO (03:14)
[2018-11-30 06:01] VITALS: BP 142/83
[2018-11-30] MEDS: risperiDONE 0.25 MG TABLET. PO SCH (10:15)
[2018-11-30] MEDS: LACTOBACILLUS RHAMNOSUS GG 1 CAPSULE. PO SCH ×2 (10:15→20:03)
[2018-11-30] MEDS: MULTIVITAMIN with MINERAL TABLET. PO SCH (10:16)
[2018-11-30] MEDS: CHOLECALCIFEROL (VITAMIN D3) 50,000 UNIT CAPSULE PO SCH (10:17)
--- NOTE | 2018-11-30 14:34 | NUR ---
Patient has had a good day, took medications, allowed for morning assessment. Participated in group, has been visiting with staff. No signs of agitation noted. Will continue to monitor.
[2018-11-30 16:48] VITALS: BP 129/78
[2018-11-30] MEDS: risperiDONE 0.5 MG TABLET. PO SCH (20:03)
[2018-11-30] MEDS: traZODone 50 MG TABLET. PO SCH (20:04)
--- NOTE | 2018-11-30 22:36 | PDOC ---
Exam Note: Hermann Note: Please also refer to the separate dictated note~for this date of service dictated separately.~Patient seen individually. Discussed the patient with Nursing staff reviewed the chart.~Reviewed interim history and current functioning. Reviewed vital signs,~Labs/ Radiology~and current medications noted below. Continue current treatment with the changes noted in the dictated addendum note Assessment: Vital Signs: Vital Signs Date Time Temp Pulse Resp B/P (MAP) Pulse Ox O2 Delivery O2 Flow Rate FiO2 11/30/18 16:48 97.9 67 18 129/78 (95) 97 11/29/18 16:22 Room Air I&O Intake and Output 11/30/18 06:59 Intake Total 960 ml Balance 960 ml Intake Oral 960 ml Current Medications: Meds: Current Medications Acetaminophen (Tylenol) 650 mg PRN Q6HRS PRN PO PAIN / TEMP Last administered on 11/29/18at 20:04; Start 11/13/18 at 20:45 Multi-Ingredient Ointment (Analgesic [place]) 1 viktoriya PRN QID PRN TP MUSCLE PAIN; Start 11/13/18 at 20:45 Al Hydroxide/Mg Hydroxide (Mylanta Plus Xs) 15 ml PRN AFTMEALHC PRN PO DYSPEPSIA; Start 11/13/18 at 20:45 Magnesium Hydroxide (Milk Of Magnesia) 2,400 mg PRN QHS PRN PO CONSTIPATION; Start 11/13/18 at 20:45 Zolpidem Tartrate (Ambien) 5 mg PRN QHS PRN PO INSOMNIA; Start 11/13/18 at 21:15; Stop 11/18/18 at 19:22; Status DC Quetiapine Fumarate (SEROquel) 100 mg DAILY PO Last administered on 11/20/18at 08:23; Start 11/14/18 at 09:00; Stop 11/20/18 at 17:01; Status DC Quetiapine Fumarate (SEROquel) 200 mg QHS PO Last administered on 11/19/18at 20:07; Start 11/13/18 at 22:00; Stop 11/20/18 at 17:01; Status DC Cefdinir (Omnicef) 300 mg BID PO Last administered on 11/20/18at 19:37; Start 11/14/18 at 09:00; Stop 11/21/18 at 08:59; Status DC Diphenhydramine HCl (Benadryl) 25 mg PRN QHS PRN PO INSOMNIA Last administered on 11/28/18 23:03; Start 11/13/18 at 22:00 Multivitamins/ Calcium (Thera-M Plus) 1 tab DAILY PO Last administered on 11/30/18 10:16; Start 11/14/18 at 09:00 Nicotine Polacrilex (Nicorette Gum) 2 mg PRN Q2HR PRN BC SMOKING CESSATION; Start 11/13/18 at 22:00 Lactobacillus Rhamnosus (Culturelle) 1 cap BID PO Last administered on 11/30/18 20:03; Start 11/15/18 at 21:00 Vitamin D (Vitamin D3) 50,000 unit WEEKLY PO Last administered on 11/30/18 10:17; Start 11/16/18 at 15:15 Olanzapine (ZyPREXA ZYDIS) 2.5 mg PRN Q2HR PRN PO ANXIETY / AGITATION Last administered on 11/16/18 18:31; Start 11/16/18 at 18:15 Fluvoxamine Maleate (Luvox) 25 mg HS PO Last administered on 11/22/18 19:33; Start 11/20/18 at 21:00; Stop 11/23/18 at 20:59; Status DC Risperidone (RisperDAL) 0.25 mg DAILY PO Last administered on 11/30/18 10:15; Start 11/21/18 at 09:00 Risperidone (RisperDAL) 0.5 mg QHS PO Last administered on 11/30/18 20:03; Start 11/20/18 at 21:00 Trazodone HCl (Desyrel) 50 mg QHS PO Last administered on 11/30/18 20:04; Start 11/21/18 at 21:00 Trazodone HCl (Desyrel) 50 mg PRN QHS PRN PO INSOMNIA; Start 11/21/18 at 12:30 Fluvoxamine Maleate (Luvox) 50 mg HS PO Last administered on 11/30/18 20:03; Start 11/23/18 at 21:00 Active Scripts Active Reported Culturelle (Lactobacillus Rhamnosus Gg) 1 Each Cap.sprink 1 Each PO BID D3-50 (Cholecalciferol (Vitamin D3)) 50,000 Unit Capsule 50,000 Unit PO WEEKLY Olanzapine 5 Mg Tablet 2.5 Mg PO PRN Q2HR PRN Risperdal (Risperidone) 0.25 Mg Tablet 0.25 Mg PO DAILY Risperdal (Risperidone) 0.5 Mg Tablet 0.5 Mg PO QHS Trazodone Hcl 50 Mg Tablet 50 Mg PO PRN QHS PRN Trazodone Hcl 50 Mg Tablet 50 Mg PO HS Fluvoxamine Maleate 50 Mg Tablet 50 Mg PO HS Zzzquil (Diphenhydramine Hcl) 25 Mg Capsule 25 Mg PO PRN QHS PRN Seroquel (Quetiapine Fumarate) 200 Mg Tablet 200 Mg PO QHS Seroquel (Quetiapine Fumarate) 100 Mg Tablet 100 Mg PO DAILY Nicorette (Nicotine Polacrilex) 2 Mg Gum 2 Mg BC PRN Q2HR PRN Centrum Silver Tablet (Multivits-Min/Fa/Lycopene/Lut) 1 Each Tablet 1 Each PO DAILY Cefpodoxime Proxetil 200 Mg Tablet 200 Mg PO BID Ambien (Zolpidem Tartrate) 5 Mg Tablet 5 Mg PO PRN QHS PRN I have reviewed the current psychotropics carefully including drug interactions. Risk benefit ratio favors no change other than as noted in my dictated progress note. Diagnosis: Problems: (1) Hypercalcemia (2) Mood disorder (3) Unspecified psychosis (4) Bipolar affective, mixed, sev w/ psych (5) Mild cognitive disorder (6) History of schizophrenia (7) Schizoaffective disorder, chronic condition with acute exacerbation (8) Dementia, vascular, with delusions (9) Dementia, vascular, with depression (10) Dementia in Alzheimer's disease with delusions (11) Dementia in Alzheimer's disease with depression ASHLEE HILARIO MD Nov 30, 2018 22:36
--- NOTE | 2018-11-30 23:00 | NUR ---
Pt was located in the dayroom this evening, browsing through the newspaper. Pt pleasant and compliant. No behaviors noted.
[2018-12-01 06:21] VITALS: BP 114/71
[2018-12-01] MEDS: LACTOBACILLUS RHAMNOSUS GG 1 CAPSULE. PO SCH ×2 (08:09→19:52)
[2018-12-01] MEDS: MULTIVITAMIN with MINERAL TABLET. PO SCH (08:10)
[2018-12-01] MEDS: risperiDONE 0.25 MG TABLET. PO SCH (08:10)
--- NOTE | 2018-12-01 11:51 | NUR ---
Patient has had a great morning. Is ready to leave tomorrow. Took medications, allowed for morning assessment. She has been very cheerful this morning, has participated in morning group and is smiling at everyone. No signs of agitation noted at this time. Will continue to monitor.
[2018-12-01 16:19] VITALS: BP 133/82
[2018-12-01] MEDS ORDERED: MAGN2400 PO (16:26)
[2018-12-01] MEDS ORDERED: NICO2GUM42 BC (16:26)
[2018-12-01] MEDS ORDERED: MAG355OR11 PO (16:26)
[2018-12-01] MEDS ORDERED: METH29OI TP (16:26)
[2018-12-01] MEDS: traZODone 50 MG TABLET. PO SCH (19:51)
[2018-12-01] MEDS: risperiDONE 0.5 MG TABLET. PO SCH (19:51)
--- NOTE | 2018-12-01 22:40 | PDOC ---
Exam Note: Hermann Note: Please also refer to the separate dictated note~for this date of service dictated separately.~Patient seen individually. Discussed the patient with Nursing staff reviewed the chart.~Reviewed interim history and current functioning. Reviewed vital signs,~Labs/ Radiology~and current medications noted below. Continue current treatment with the changes noted in the dictated addendum note Assessment: Vital Signs: Vital Signs Date Time Temp Pulse Resp B/P (MAP) Pulse Ox O2 Delivery O2 Flow Rate FiO2 12/01/18 16:19 98.4 61 18 133/82 (99) 12/01/18 06:21 96 11/29/18 16:22 Room Air I&O Intake and Output 12/01/18 07:00 Intake Total 1320 ml Balance 1320 ml Intake Oral 1320 ml Current Medications: Meds: Current Medications Acetaminophen (Tylenol) 650 mg PRN Q6HRS PRN PO PAIN / TEMP Last administered on 11/29/18at 20:04; Start 11/13/18 at 20:45 Multi-Ingredient Ointment (Analgesic [place]) 1 sahara PRN QID PRN TP MUSCLE PAIN; Start 11/13/18 at 20:45 Al Hydroxide/Mg Hydroxide (Mylanta Plus Xs) 15 ml PRN AFTMEALHC PRN PO DYSPEPSIA; Start 11/13/18 at 20:45 Magnesium Hydroxide (Milk Of Magnesia) 2,400 mg PRN QHS PRN PO CONSTIPATION; Start 11/13/18 at 20:45 Zolpidem Tartrate (Ambien) 5 mg PRN QHS PRN PO INSOMNIA; Start 11/13/18 at 21:15; Stop 11/18/18 at 19:22; Status DC Quetiapine Fumarate (SEROquel) 100 mg DAILY PO Last administered on 11/20/18at 08:23; Start 11/14/18 at 09:00; Stop 11/20/18 at 17:01; Status DC Quetiapine Fumarate (SEROquel) 200 mg QHS PO Last administered on 11/19/18at 20:07; Start 11/13/18 at 22:00; Stop 11/20/18 at 17:01; Status DC Cefdinir (Omnicef) 300 mg BID PO Last administered on 11/20/18at 19:37; Start 11/14/18 at 09:00; Stop 11/21/18 at 08:59; Status DC Diphenhydramine HCl (Benadryl) 25 mg PRN QHS PRN PO INSOMNIA Last administered on 11/28/18 23:03; Start 11/13/18 at 22:00 Multivitamins/ Calcium (Thera-M Plus) 1 tab DAILY PO Last administered on 12/01/18 08:10; Start 11/14/18 at 09:00 Nicotine Polacrilex (Nicorette Gum) 2 mg PRN Q2HR PRN BC SMOKING CESSATION; Start 11/13/18 at 22:00 Lactobacillus Rhamnosus (Culturelle) 1 cap BID PO Last administered on 12/01/18 19:52; Start 11/15/18 at 21:00 Vitamin D (Vitamin D3) 50,000 unit WEEKLY PO Last administered on 11/30/18 10:17; Start 11/16/18 at 15:15 Olanzapine (ZyPREXA ZYDIS) 2.5 mg PRN Q2HR PRN PO ANXIETY / AGITATION Last administered on 11/16/18 18:31; Start 11/16/18 at 18:15 Fluvoxamine Maleate (Luvox) 25 mg HS PO Last administered on 11/22/18 19:33; Start 11/20/18 at 21:00; Stop 11/23/18 at 20:59; Status DC Risperidone (RisperDAL) 0.25 mg DAILY PO Last administered on 12/01/18 08:10; Start 11/21/18 at 09:00 Risperidone (RisperDAL) 0.5 mg QHS PO Last administered on 12/01/18 19:51; Start 11/20/18 at 21:00 Trazodone HCl (Desyrel) 50 mg QHS PO Last administered on 12/01/18 19:51; Start 11/21/18 at 21:00 Trazodone HCl (Desyrel) 50 mg PRN QHS PRN PO INSOMNIA; Start 11/21/18 at 12:30 Fluvoxamine Maleate (Luvox) 50 mg HS PO Last administered on 12/01/18 19:51; Start 11/23/18 at 21:00 Active Scripts Active Reported Nicotine Gum (Nicotine Polacrilex) 2 Mg Gum 2 Mg BC PRN Q2HR PRN Analgesic [place] (Methyl Salicylate/Menthol) 28 Gm Oint...g. 1 Shaara TP QIDPRN PRN Milk Of Magnesia (Magnesium Hydroxide) 2,400 Mg/10 Ml Oral.susp 2,400 Mg PO PRN QHS PRN Maalox Advanced Suspension (Mag Hydrox/Aluminum Hyd/Simeth) 355 Ml Oral.susp 15 Ml PO PRN QHS PRN Culturelle (Lactobacillus Rhamnosus Gg) 1 Each Cap.sprink 1 Each PO BID D3-50 (Cholecalciferol (Vitamin D3)) 50,000 Unit Capsule 50,000 Unit PO WEEKLY Olanzapine 5 Mg Tablet 2.5 Mg PO PRN Q2HR PRN Risperdal (Risperidone) 0.25 Mg Tablet 0.25 Mg PO DAILY Risperdal (Risperidone) 0.5 Mg Tablet 0.5 Mg PO QHS Trazodone Hcl 50 Mg Tablet 50 Mg PO PRN QHS PRN Trazodone Hcl 50 Mg Tablet 50 Mg PO HS Fluvoxamine Maleate 50 Mg Tablet 50 Mg PO HS Zzzquil (Diphenhydramine Hcl) 25 Mg Capsule 25 Mg PO PRN QHS PRN Seroquel (Quetiapine Fumarate) 200 Mg Tablet 200 Mg PO QHS Seroquel (Quetiapine Fumarate) 100 Mg Tablet 100 Mg PO DAILY Nicorette (Nicotine Polacrilex) 2 Mg Gum 2 Mg BC PRN Q2HR PRN Centrum Silver Tablet (Multivits-Min/Fa/Lycopene/Lut) 1 Each Tablet 1 Each PO DAILY Cefpodoxime Proxetil 200 Mg Tablet 200 Mg PO BID Ambien (Zolpidem Tartrate) 5 Mg Tablet 5 Mg PO PRN QHS PRN I have reviewed the current psychotropics carefully including drug interactions. Risk benefit ratio favors no change other than as noted in my dictated progress note. Diagnosis: Problems: (1) Mood disorder (2) Unspecified psychosis (3) Bipolar affective, mixed, sev w/ psych (4) Mild cognitive disorder (5) History of schizophrenia (6) Schizoaffective disorder, chronic condition with acute exacerbation (7) Dementia, vascular, with delusions (8) Dementia, vascular, with depression (9) Dementia in Alzheimer's disease with delusions (10) Dementia in Alzheimer's disease with depression ASHLEE HILARIO MD Dec 01, 2018 22:40
--- NOTE | 2018-12-01 23:29 | NUR ---
Pt located in her room this evening socializing with roommate. Compliant with whole medications. Calm and cooperative.
[2018-12-02 06:23] VITALS: BP 159/89
--- NOTE | 2018-12-02 06:27 | PN ---
DATE: 11/29/2018 PSYCHIATRIC PROGRESS NOTE This late entry 11/29/2018 covers elements not covered in my initial note. SUBJECTIVE: I met with the patient in the evening. Overall, the patient slept 7-3/4 hours previous night. She was doing well the previous night and during the day 11/29/2018, writing profusely; about questioned, she has her surgeon before her parathyroid surgery. REVIEW OF SYSTEMS: No CV, , pulmonary, eye, ENT system symptoms on review. Reliability fair. MENTAL STATUS EXAM: Oriented to herself and situation. Speech coherent, less pressured. Abstraction fair, computation impaired, language function intact. Mood and affect is improved. LABORATORY DATA: Reviewed. IMPRESSION: Unchanged from initial note. PLAN: No change from initial note. ASHLEE HILARIO MD DR: SELVIN/anthaniel JOB#: [id number] / [id number]
--- NOTE | 2018-12-02 07:17 | PN ---
DATE: 11/30/2018 PSYCHIATRIC PROGRESS NOTE This late entry 11/30/2018 covers elements not covered in my initial note. SUBJECTIVE: I met with the patient in the evening. The patient slept 5-1/2 hours previous night. I met with her in her room. She has been appropriate in her interactions. No hallucinations or delusions noted. Compliant with medications, had a good day. REVIEW OF SYSTEMS: No CV, , pulmonary, eye, ENT system symptoms on review. MENTAL STATUS EXAM: Reasonably oriented. Speech is coherent, less pressured. Abstraction fair, computation impaired, language function intact. Mood and affect is improved. LABORATORY DATA: Reviewed. IMPRESSION: Unchanged from initial note. PLAN: No change from initial note. MAN Puma HILARIO MD DR: SELVIN/nathaniel JOB#: [id number] / [id number]
[2018-12-02] MEDS: MULTIVITAMIN with MINERAL TABLET. PO SCH (07:36)
[2018-12-02] MEDS: risperiDONE 0.25 MG TABLET. PO SCH (07:36)
[2018-12-02] MEDS: LACTOBACILLUS RHAMNOSUS GG 1 CAPSULE. PO SCH (07:36)
--- NOTE | 2018-12-02 08:30 | NUR ---
Patient has a great morning. She has been happy, cheerful, and energetic. Is ready to leave today. Took medications as prescribed, allowed for morning assessment. No signs of agitation noted at this time.
--- NOTE | 2018-12-02 08:38 | PN ---
DATE: 12/01/2018 PSYCHIATRIC PROGRESS NOTE This note covers elements not covered in my initial note. SUBJECTIVE: I met with the patient in the evening. The patient slept 6-1/4 hours previous night. She has been quite appropriate during the day helping others. REVIEW OF SYSTEMS: No CV, , pulmonary, eye system symptoms on review. MENTAL STATUS EXAM: Reasonably oriented. Speech is coherent, abstraction fair, computation impaired, language function intact. Mood and affect is improved. LABORATORY DATA: Reviewed. IMPRESSION: Unchanged from initial note. PLAN: No change from initial note. MAN Puma HILARIO MD DR: SELVIN/nathaniel JOB#: [id number] / [id number]
--- NOTE | 2018-12-02 10:45 | NUR ---
Tobacco Discharge Note [facility] Tobacco Hotline called with patient prior to discharge, YES Tobacco cessation medication listed with current medications for discharge. YES Transition Record was faxed to follow-up provider with the following elements: Reason for admission, procedures, tests, principal diagnosis, pending studies, patient instructions, 22/01 contact information for unit, phone number to obtain pending test results, plan for follow-up care, physician follow-up, advanced directive information, and medication list with dose, duration and instructions. This information was included in the following documents: History and physical, lab results, study results, progress notes, social work planning form, DC instruction form, patient visit summary, and medication reconciliation form. Date & time record faxed: 12/02/2018 @00:17 Record faxed to: Dr. Nicho Andres [phone] Record discussed with/ report given to: Patient is discharging home. Spoke to about medications as well as any future appointments. Medications were called to [facility] @[phone].
--- NOTE | 2018-12-02 22:30 | PDOC ---
Exam Note: Hermann Note: Please also refer to the separate dictated note~for this date of service dictated separately.~Patient seen individually. Discussed the patient with Nursing staff reviewed the chart.~Reviewed interim history and current functioning. Reviewed vital signs,~Labs/ Radiology~and current medications noted below. Continue current treatment with the changes noted in the dictated addendum note Assessment: Vital Signs: Vital Signs Date Time Temp Pulse Resp B/P (MAP) Pulse Ox O2 Delivery O2 Flow Rate FiO2 12/02/18 06:23 97.4 86 18 159/89 (112) 98 11/29/18 16:22 Room Air I&O Intake and Output 12/02/18 07:00 Intake Total 1200 ml Balance 1200 ml Intake Oral 1200 ml Current Medications: Meds: Current Medications Acetaminophen (Tylenol) 650 mg PRN Q6HRS PRN PO PAIN / TEMP Last administered on 11/29/18at 20:04; Start 11/13/18 at 20:45; Stop 12/02/18 at 12:19; Status DC Multi-Ingredient Ointment (Analgesic Robson) 1 sahara PRN QID PRN TP MUSCLE PAIN; Start 11/13/18 at 20:45; Stop 12/02/18 at 12:19; Status DC Al Hydroxide/Mg Hydroxide (Mylanta Plus Xs) 15 ml PRN AFTMEALHC PRN PO DYSPEPSIA; Start 11/13/18 at 20:45; Stop 12/02/18 at 12:19; Status DC Magnesium Hydroxide (Milk Of Magnesia) 2,400 mg PRN QHS PRN PO CONSTIPATION; Start 11/13/18 at 20:45; Stop 12/02/18 at 12:19; Status DC Zolpidem Tartrate (Ambien) 5 mg PRN QHS PRN PO INSOMNIA; Start 11/13/18 at 21:15; Stop 11/18/18 at 19:22; Status DC Quetiapine Fumarate (SEROquel) 100 mg DAILY PO Last administered on 11/20/18at 08:23; Start 11/14/18 at 09:00; Stop 11/20/18 at 17:01; Status DC Quetiapine Fumarate (SEROquel) 200 mg QHS PO Last administered on 11/19/18at 20:07; Start 11/13/18 at 22:00; Stop 11/20/18 at 17:01; Status DC Cefdinir (Omnicef) 300 mg BID PO Last administered on 11/20/18at 19:37; Start 11/14/18 at 09:00; Stop 11/21/18 at 08:59; Status DC Diphenhydramine HCl (Benadryl) 25 mg PRN QHS PRN PO INSOMNIA Last administered on 11/28/18 23:03; Start 11/13/18 at 22:00; Stop 12/02/18 at 12:19; Status DC Multivitamins/ Calcium (Thera-M Plus) 1 tab DAILY PO Last administered on 12/02/18 07:36; Start 11/14/18 at 09:00; Stop 12/02/18 at 12:19; Status DC Nicotine Polacrilex (Nicorette Gum) 2 mg PRN Q2HR PRN BC SMOKING CESSATION; Start 11/13/18 at 22:00; Stop 12/02/18 at 12:19; Status DC Lactobacillus Rhamnosus (Culturelle) 1 cap BID PO Last administered on 12/02/18 07:36; Start 11/15/18 at 21:00; Stop 12/02/18 at 12:19; Status DC Vitamin D (Vitamin D3) 50,000 unit WEEKLY PO Last administered on 11/30/18at 10:17; Start 11/16/18 at 15:15; Stop 12/02/18 at 12:19; Status DC Olanzapine (ZyPREXA ZYDIS) 2.5 mg PRN Q2HR PRN PO ANXIETY / AGITATION Last administered on 11/16/18at 18:31; Start 11/16/18 at 18:15; Stop 12/02/18 at 12:19; Status DC Fluvoxamine Maleate (Luvox) 25 mg HS PO Last administered on 11/22/18 19:33; Start 11/20/18 at 21:00; Stop 11/23/18 at 20:59; Status DC Risperidone (RisperDAL) 0.25 mg DAILY PO Last administered on 12/02/18 07:36; Start 11/21/18 at 09:00; Stop 12/02/18 at 12:19; Status DC Risperidone (RisperDAL) 0.5 mg QHS PO Last administered on 6/2/19at 19:51; Start 11/20/18 at 21:00; Stop 12/02/18 at 12:19; Status DC Trazodone HCl (Desyrel) 50 mg QHS PO Last administered on 12/01/18at 19:51; Sta rt 11/21/18 at 21:00; Stop 12/02/18 at 12:19; Status DC Trazodone HCl (Desyrel) 50 mg PRN QHS PRN PO INSOMNIA; Start 11/21/18 at 12:30; Stop 12/02/18 at 12:19; Status DC Fluvoxamine Maleate (Luvox) 50 mg HS PO Last administered on 12/01/18at 19:51; Start 11/23/18 at 21:00; Stop 12/02/18 at 12:19; Status DC Active Scripts Active Reported Nicotine Gum (Nicotine Polacrilex) 2 Mg Gum 2 Mg BC PRN Q2HR PRN Analgesic [place] (Methyl Salicylate/Menthol) 28 Gm Oint...g. 1 [place] TP QIDPRN PRN Milk Of Magnesia (Magnesium Hydroxide) 2,400 Mg/10 Ml Oral.susp 2,400 Mg PO PRN QHS PRN Maalox Advanced Suspension (Mag Hydrox/Aluminum Hyd/Simeth) 355 Ml Oral.susp 15 Ml PO PRN QHS PRN Culturelle (Lactobacillus Rhamnosus Gg) 1 Each Cap.sprink 1 Each PO BID D3-50 (Cholecalciferol (Vitamin D3)) 50,000 Unit Capsule 50,000 Unit PO WEEKLY start date: 11/16/18 Olanzapine 5 Mg Tablet 2.5 Mg PO PRN Q2HR PRN Risperdal (Risperidone) 0.25 Mg Tablet 0.25 Mg PO DAILY Risperdal (Risperidone) 0.5 Mg Tablet 0.5 Mg PO QHS Trazodone Hcl 50 Mg Tablet 50 Mg PO PRN QHS PRN Trazodone Hcl 50 Mg Tablet 50 Mg PO HS Fluvoxamine Maleate 50 Mg Tablet 50 Mg PO HS Zzzquil (Diphenhydramine Hcl) 25 Mg Capsule 25 Mg PO PRN QHS PRN Centrum Silver Tablet (Multivits-Min/Fa/Lycopene/Lut) 1 Each Tablet 1 Each PO DAILY I have reviewed the current psychotropics carefully including drug interactions. Risk benefit ratio favors no change other than as noted in my dictated progress note. Diagnosis: Problems: (1) Mood disorder (2) Unspecified psychosis (3) Bipolar affective, mixed, sev w/ psych (4) Mild cognitive disorder (5) History of schizophrenia (6) Schizoaffective disorder, chronic condition with acute exacerbation (7) Dementia, vascular, with delusions (8) Dementia, vascular, with depression (9) Dementia in Alzheimer's disease with delusions (10) Dementia in Alzheimer's disease with depression ASHLEE HILARIO MD Dec 02, 2018 22:30
--- NOTE | 2018-12-03 20:52 | DS ---
DATE OF DISCHARGE: 12/02/2018 DISCHARGE SUMMARY/PSYCHIATRIC PROGRESS NOTE This late entry 12/02/2018 covers elements not covered in my initial note 12/02/2018. REASON FOR ADMISSION: Please refer to the admission history for details. Briefly, the patient is a 73-year-old female referred to us from [facility] where she presented from home on account of wandering away from home. The neighbors had to bring her back. She thought strangers had entered her home. She is having auditory hallucinations. She was standing in one place for hours, almost catatonic. She had marked insomnia, confusion. This was within the context of her hypercalcemia and hyperparathyroidism. She also had a UTI, which was treated following admission. She also has a history of melanoma. SIGNIFICANT FINDINGS AND CLINICAL COURSE: Following admission, the patient was seen daily individually by myself from a psychiatric standpoint, medical followup with Dr. Benson. The patient remained quite psychotic, agitated following admission. She was quite disorganized, confused. The patient was also extremely obsessive, ruminative. Adjustments were made in her psychotropics and she seemed to respond to a combination of Luvox 50 mg at bedtime, Risperdal 0.25 mg a.m. and 0.5 mg at bedtime, Zyprexa p.r.n., trazodone 50 mg at bedtime and 50 mg at bedtime p.r.n. insomnia. She in fact made quite significant recovery in her psychosis and her , Jeffrey, was pleasantly very pleased with her rapid improvement. REVIEW OF SYSTEMS: Prior to discharge on 12/02/2018, no CV, , pulmonary, eye, ENT system symptoms on review. MENTAL STATUS EXAM: Oriented to herself and situation. Speech coherent, abstraction fair, computation impaired, language function intact, attention span short. Short-term memory has some mild deficits. She is still slightly obsessive, but the psychotic symptoms had resolved. Confusion appeared much better. No suicidal or homicidal ideation at discharge. CONDITION AT DISCHARGE: Improved. FINAL DIAGNOSES: Psychotic disorder, unspecified versus schizoaffective disorder, bipolar type, mixed with psychotic features; obsessive-compulsive disorder; major depressive disorder with psychotic features; anxiety disorder, unspecified, mild cognitive impairment. Rest unchanged from admission. DISCHARGE MEDICATIONS: Please refer to the MRAD. DISCHARGE INSTRUCTIONS: Outpatient psychiatric and medical followup was arranged prior to discharge. Time for discharge day management greater than 30 minutes. ASHLEE HILARIO MD DR: SELVIN/nathaniel JOB#: [id number] / [id number]
== END 2018-12-02 10:45 | disposition home or self-care (01) | DRG 885 ==
LOC: GEROPSY 20:28
PROVIDERS: ADMIT Psychiatry & Neurology Psychiatry; ATTEND Psychiatry & Neurology Psychiatry
DX: F31.64 Bipolar disorder, current episode mixed, severe, with psychotic features (principal); F01.51 Vascular dementia, unspecified severity, with behavioral disturbance; N39.0 Urinary tract infection, site not specified; M81.0 Age-related osteoporosis without current pathological fracture; D64.9 Anemia, unspecified; E21.0 Primary hyperparathyroidism; F02.80 Dementia in other diseases classified elsewhere, unspecified severity, without behavioral disturbance, psychotic disturbance, mood disturbance, and anxiety; F41.9 Anxiety disorder, unspecified; F42.9 Obsessive-compulsive disorder, unspecified; G30.9 Alzheimer's disease, unspecified; G47.00 Insomnia, unspecified; Z79.899 Other long term (current) drug therapy; Z85.820 Personal history of malignant melanoma of skin; Z88.8 Allergy status to other drugs, medicaments and biological substances
CPT/HCPCS: 36415; 80053; 80061; 81001; 82306; 83036; 83540; 83550; 83735; 83970; 84100; 84436; 84443; 84480; 85025; 86592; 93005; Q0163